=== PATIENT | male | born 1960 | race Caucasian/White ===

== ENCOUNTER 2023-03-28 19:19 | Observation (INO) | payer MEDICARE, SELFPAY ==
[2023-03-28] VITALS (7 sets, daily range): BP systolic 82–131; BP diastolic 54–77; PULSE 66–91; RESP 18–26; TEMP 36.3–36.4; O2SAT 97–100; BMI 21.8
--- NOTE | ~2023-03-28 | MR_ITS ---
EXAMINATION: MR foot LT wo con DATE: 03/30/2023 12:14 INDICATION: Abnormal x-ray of the left foot TECHNIQUE: Magnetic resonance imaging (MRI) of the left foot was performed without intravenous contra st. Sequences included axial, sagittal and coronal T1-weighted FSE, axial and coronal T2-weighted FS FSE and sagittal fluid sensitive FSE STIR. COMPARISON: Left foot radiographs dated 03/28/2023 FINDINGS: Status post great toe amputation at the level of the metatarsophalangeal joint and of the second toe at the mid diaphysis of the second proximal phalanx. There is dorsal and medial angulation of the mid and distal phalanges in the third toe relative to the axis of the proximal phalanx which accounts fo r the abnormal appearance on the prior radiographs. Fourth toe is clot. Normal bone marrow signal thr oughout. No reactive edema, fracture, osteomyelitis or other pathologic marrow replacing process. Marlon cific formation with loss of T1 fat signal the subcutaneous tissues plantar to the head of the first metatarsal and to lesser degree plantar to the head of the fifth metatarsal. Moderate fatty atrophy o f the intrinsic musculature of the left foot. Visualized portions of the flexor and extensor tendons are normal. Physiologic amount fluid in the joint spaces. No abscess or other abnormal fluid collecti ons. IMPRESSION: 1. No abscess or osteomyelitis in the left foot. 2. Malalignment of the third toe with dorsal/medial angulation of the middle and distal phalanges whi ch correspond to the abnormality described on the prior radiographs. Reviewed, dictated and finalized at location B. IMPRESSION: 1. No abscess or osteomyelitis in the left foot. 2. Malalignment of the third toe with dorsal/medial angulation of the middle an d distal phalanges which correspond to the abnormality described on the prior r adiographs.
--- NOTE | ~2023-03-28 | XR_ITS ---
EXAMINATION: XR foot LT min 3V DATE: 03/28/2023 20:56 INDICATION: Toe pain and bleeding. Prior amputation of the first and second toes TECHNIQUE: Dorsoplantar, two oblique and lateral views of the left foot were obtained. COMPARISON: None. FINDINGS: Amputation of the great toe at level of the first metatarsophalangeal joint. Amputation the second to e at the proximal diaphysis of the second proximal phalanx. Abnormally contoured but corticated bone in the region of the head of the third proximal phalanx, unclear whether this represents sequela of a n additional amputation or chronic erosion of the mid and distal phalanges and head of the proximal p halanx. No fractures. No acute appearing osteolysis/cortical erosion to suggest osteomyelitis. Mild p olyarticular osteoarthritis at the tarsometatarsal joints. Small plantar calcaneal spur. IMPRESSION: 1. No acute osseous abnormality. 2. Abnormally contoured but corticated bone in the region of the head of the third proximal phalanx, unclear whether this represents sequela of an additional amputation or chronic erosion of the mid and distal phalanges and head of the proximal phalanx. Reviewed, dictated and finalized at location A. IMPRESSION: 1. No acute osseous abnormality. 2. Abnormally contoured but corticated bone in the region of the head of the th ird proximal phalanx, unclear whether this represents sequela of an additional amputation or chronic erosion of the mid and distal phalanges and head of the p roximal phalanx.
--- NOTE | ~2023-03-28 | XR_ITS ---
EXAMINATION: XR chest 2V DATE: 03/28/2023 20:56 INDICATION: Cough TECHNIQUE: frontal and lateral views of the chest were obtained. COMPARISON: None FINDINGS: Bronchial wall thickening and mild opacities at the posterior lung bases on the lateral projection wh ich appears more likely right-sided on the frontal projection. Remainder of the lungs are clear. No p leural effusion or pneumothorax. Heart size is normal. Bilateral rib fractures which appear chronic o n the left and age indeterminate at the anterior right sixth and seventh ribs. IMPRESSION: 1. Mild wall thickening and mild opacities at the right lung base which could represent bronchitis/pn eumonia, mild pulmonary edema, atelectasis or some combination thereof. 2. Age-indeterminate anterior right sixth and seventh rib fractures. Correlate for point tenderness a t this location. Reviewed, dictated and finalized at location A. IMPRESSION: 1. Mild wall thickening and mild opacities at the right lung base which could r epresent bronchitis/pneumonia, mild pulmonary edema, atelectasis or some combin ation thereof. 2. Age-indeterminate anterior right sixth and seventh rib fractures. Correlate for point tenderness at this location.
--- NOTE | 2023-03-28 20:11 | ECG_ITS ---
Measurements Intervals [place] Rate: 84 P: -15 [place]: 195 QRS: 48 QRSD: 100 T: 65 QT: 431 QTc: 510 Interpretive Statements SINUS RHYTHM PROLONGED QT INTERVAL ABNORMAL ECG NO PREVIOUS ECG AVAILABLE FOR COMPARISON Electronically Signed On 03-29-2023 8:46:16 CDT by Anmol Petit D.O.
--- NOTE | 2023-03-28 20:26 | ED.SKABFB ---
HPI - Skin/Abscess/Foreign Bdy General Chief complaint: Skin/Abscess/Foreign Body Stated complaint: blisters over body Time Seen by Provider: 03/28/23 20:06 History of Present Illness HPI narrative: Patient is a 62-year-old male presenting with left foot pain. Patient states that he had 2 of his toes amputated from his left foot about 5 years ago. States that over the last several days he has had worsening pain and redness affecting that foot. States that the site of the prior amputation has started to bleed. States that the foot has become overwhelmingly painful so he came in for evaluation. States that he feels pain all over and also feels nauseated. He denies any chest pain though he says that he has had a productive cough. He denies worsening shortness of breath. No numbness or weakness. No abdominal pain. Denies further complaints. Related Data Home Medications Medication Instructions Recorded Confirmed albuterol sulfate 90 mcg/actuation 2 puff inhalation Q4H 03/28/23 03/28/23 aerosol inhaler amlodipine 5 mg tablet 5 mg PO DAILY 03/28/23 03/28/23 budesonide-formoterol HFA 160 2 puff inhalation BID 03/28/23 03/28/23 mcg-4.5 mcg/actuation aerosol inhaler (Symbicort) pramipexole 0.5 mg tablet 0.5 mg PO HS 03/28/23 03/28/23 tiotropium bromide 2.5 1 puff inhalation DAILY 03/28/23 03/28/23 mcg/actuation mist for inhalation (Spiriva Respimat) trazodone 50 mg tablet 50 mg PO HS 03/28/23 03/28/23 Allergies Allergy/AdvReac Type Severity Reaction Status Date / Time sulfamethoxazole Allergy Severe Swelling Verified 03/28/23 23:42 of Lip/Tongue/Throat trimethoprim Allergy Severe Swelling Verified 03/28/23 23:42 of Lip/Tongue/Throat Review of Systems Review of Systems: All systems reviewed & are unremarkable except as noted in HPI and below PMFSH Past Medical History Medical History (Updated 03/30/23 @ 18:24 by Anne Gomez MD) COPD (chronic obstructive pulmonary disease) Essential hypertension Gangrene due to arterial insufficiency Right lower extremity Hepatitis C virus infection cured after antiviral drug therapy Restless legs syndrome (RLS) Tobacco dependence with current use Surgical History Surgical History (Updated 03/29/23 @ 01:01 by Danielle Connolly DO) Amputation of left great toe History of right below knee amputation Status post cataract extraction of both eyes with insertion of intraocular lens Family History Family History (Updated 03/28/23 @ 22:38 by Danielle Connolly DO) Mother Age older than 80 years Father Unknown family medical history Social History Social History (Updated 03/29/23 @ 01:00 by Danielle Connolly DO) Social History: The patient lives in a town home. He is and lives alone. He does not have any children. 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 He still smokes a pack of cigars a day. He drinks at least 3-4 alcoholic beverages a day. He does have a distant history of IV drug abuse back in the 1980s and was treated for hepatitis C as a result. He denies any recent IV drug use. Code status: Full code Surrogate decision maker: Vanessa Nieto (aunt) phone number [phone] Smoking packs per day: 1 Smoking cigarettes per day: 20.0 Years smoked: 50 Smoking pack-years: 50.00 Smoking status: Current every day smoker Tobacco type: cigars Second hand tobacco smoke exposure: Yes Alcohol intake: current Drinks per week: 28 Substance use: former Substance use type: IV drugs Last use: 1979 Lack of Transportation: No Lack of Food: Never True Current Housing: I Have Housing Concerned About Future Housing: No Difficulty Paying Gas/Electric Bills: No Difficulty Paying for Meds: No Currently Unemployed: No Education: High School Diploma/GED Difficulty w/ Childcare or Family Care: No Living arrangements: alone Occupation/Education:
[2023-03-28] MEDS: SODIUM CHLORIDE 0.9% IV 1,000 ML 999 ML IV CONT ×2 (20:33)
[2023-03-28 20:46] LABS: Basophils Absolute Auto 0.1 K/mm3 (0.0-0.1); Eosinophils Absolute Auto 0.2 K/mm3 (0-0.3); Eosinophils Percent Auto 3.8 % (0-4.4); Hematocrit 31.6 % (42.0-52.0); Immature Granulocyte Absolute 0.02 K/mm3 (0.00-0.031); Immature Granulocyte Percent A 0.3 % (0-0.5); Lymphocytes Absolute Auto 1.79 K/mm3 (0.9-3.2); Lymphocytes Percent Auto 30.7 % (18.3-44.2); Mean Corpuscular HGB Conc 31.6 g/dl (32-36); Mean Corpuscular Hemoglobin 27.7 pg (26-34); Mean Corpuscular Volume 87.5 fl (80-100); Mean Platelet Volume 8.8 fl (7.4-10.4); Monocytes Absolute Auto 0.6 K/mm3 (0.1-0.6); Monocytes Percent Auto 10.3 % (2.6-8.5); Neutrophils Absolute Auto 3.1 K/mm3 (1.3-6.7); Neutrophils Percent Auto 53.9 % (45.5-73.1); Platelet Count Result 229 k/mm3 (150-375); Red Blood Count 3.61 M/mm3 (4.6-6.20); Red Cell Distribution Width 18.4 % (11.5-14.5); White Blood Count 5.8 K/mm3 (4.5-10.0)
[2023-03-28] MEDS: HYDROmorphone HCL INJ (*CRX) 1 MG/ML SYR 0.5 MG IV PUSH (20:46)
[2023-03-28] MEDS: ONDANSETRON INJ 4 MG/2 ML VIAL IV PUSH (20:47)
[2023-03-28 20:57] LABS: Ethanol 104 mg/dL (<10)
[2023-03-28 20:57] LABS: Alanine Aminotransferase 18 U/L (6-50); Albumin Level 3.9 g/dL (3.5-5.1); Alkaline Phosphatase 62 U/L (38-126); Anion Gap 10 mmol/L (8-16); Aspartate Amino Transferase 41 U/L (17-59); Bilirubin,Total 0.6 mg/dL (0.2-1.3); Blood Urea Nitrogen 18 mg/dL (9-20); Calcium 8.4 mg/dL (8.4-10.2); Carbon Dioxide 22 mmol/L (22-30); Chloride 101 mmol/L (98-107); Estimated Glomerular Filt Rate > 60; Glucose 73 mg/dL (65-110); Lipase 277 U/L (23-300); Potassium 3.3 mmol/L (3.4-5.0); Sodium 133 mmol/L (137-145)
[2023-03-28 20:58] LABS: Lactic Acid Reflex 2.4 mmol/L (0.7-2.0)
--- NOTE | 2023-03-28 21:25 | PC.NURSE ---
pt comes to ED today for blisters allover body and swelling. no blisters or swelling noted. pt has redness and swelling with sores to his left foot.
[2023-03-28 21:35] LABS: Influenza A QL RT-PCR Negative (Negative); Influenza B QL RT-PCR Negative (Negative); SARS-CoV-2 RNA PCR Negative (Negative)
[2023-03-28 21:47] LABS: Phosphorus 3.4 mg/dL (2.5-4.5)
[2023-03-28] MEDS: CEFEPIME 1 GM/NS 50 ML 1 GM/50 ML BAG IVPB (21:57)
[2023-03-28] MEDS: DOXYCYCLINE 100 MG/NS 100 ML 100 MG/100 ML BAG IVPB (22:29)
--- NOTE | 2023-03-28 22:32 | PM.IMHP ---
H&P: HPI History of Present Illness Date/Time: 03/28/23 22:00 Chief Complaint: ?Blisters all over my body? Narrative: 62-year-old male with a past medical history of right vmsft-psn-gwwo amputation, left 1st and 2nd toe amputation, COPD, essential hypertension and restless leg syndrome who came into the ER via EMS with a complaint of blisters all over his body. The patient at the time of my evaluation stated that he came into the ER because he has ?eggs coming out of his pores. The patient indicates that when he squeezes his arms his hairs on his arms stand up and he has aches that come out from his porch. He also tells me that he has been coughing and when he coughs he has eggs from a fungus he was exposed while junking coming up from his lungs. He also states that his nasal drainage has eggs. He told EMS that he needed to come in because he had blisters all over his body. However there was no blisters noted on exam by EMS or by medical records coder at the hospital. The patient has been afebrile. He is not in any respiratory distress. He initially was refusing to let staff take his shoes off because he stated he would never get his foot back in issue. They did manage to take issue often he had a laceration/skin tear to the ball of his left foot. Initially the skin appeared macerated in appearance but after his foot had been exposed to the air there was no evidence of maceration or rash. Patient did have some mild erythema around the laceration. He had no associated warmth or drainage. The patient was mildly intoxicated in the ER. He states he drinks 3-4 alcoholic beverages a day. He denies pain and alcoholic or having episodes of alcohol withdrawal. He does have chronic shortness of breath due to his history of COPD. He still continues to smoke. He denies any nausea or vomiting. He reports that he is extremely hungry. He denies any chest pain. When I discussed the patient's symptoms in tell him that he does not have eggs coming from his sputum and that his mucus which he describes as clear in nature is just from his COPD and smoking and possible pneumonia the patient is dismissive. He is redirectable. He denies any significant pain in his foot or leg. He reports history of restless leg syndrome is requesting his home Mirapex and trazodone. The patient denies a known history of BPH but does have some instances of weak stream and interrupted urinary stream. He denies any dysuria. Review of Systems Review of Systems: 12 systems were reviewed with pertinent positives and negatives per HPI. Except as documented in the HPI, all other systems were reviewed and are negative. [facility] Past Medical History Medical History (Updated 03/29/23 @ 01:14 by Danielle Connolly DO) COPD (chronic obstructive pulmonary disease) Essential hypertension Gangrene due to arterial insufficiency Right lower extremity Hepatitis C virus infection cured after antiviral drug therapy Restless legs syndrome (RLS) Tobacco dependence with current use Surgical History Surgical History (Updated 03/29/23 @ 01:01 by Danielle Connolly DO) Amputation of left great toe History of right below knee amputation Status post cataract extraction of both eyes with insertion of intraocular lens Family History Family History (Updated 03/28/23 @ 22:38 by Danielle Connolly DO) Mother Age older than 80 years Father Unknown family medical history Social History Social History (Updated 03/29/23 @ 01:00 by Danielle Connolly DO) Social History: The patient lives in a town home. He is and lives alone. He does not have any children. 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 He still smokes a pack of cigars a day. He drinks at least 3-4 alcoholic beverages a day. He does have a distant history of IV drug abuse back in the 1980s and was treated for hepatitis C as a result. He denies any recent IV drug use. Code s
[2023-03-28] MEDS: traZODone HCL 50 MG TABLET PO (22:43)
[2023-03-28] MEDS: PRAMIPEXOLE 0.5 MG TABLET PO (22:43)
--- NOTE | 2023-03-28 23:20 | PC.NURSE ---
Pt attempting to provide urine sample at this time. Pt declines catheter
--- NOTE | 2023-03-28 23:30 | PC.NURSE ---
Patient has two pocket knives in possession. Pt compliant with locking these items up.
[2023-03-28 23:37] LABS: Appearance Urine Clear (Clear); Bilirubin Urine 1+ (Negative); Blood Urine Negative (Negative); Color Urine Dark Yellow (Yellow); Glucose Urine UA Negative (Negative); Ketones Urine Negative (Negative); Leukocyte Esterase Ur Negative LEU/UL (Negative); Nitrate Urine Negative (Negative); Protein Urine Negative (Negative); pH Urine 5.5 (5.0-9.0)
[2023-03-28 23:44] LABS: Reflex Lactic Acid Yes or No Add Lactic
[2023-03-28 23:49] LABS: Add Urine Microscopic? NO
[2023-03-29] VITALS (11 sets, daily range): BP systolic 119–137; BP diastolic 83–98; PULSE 65–116; RESP 16–24; TEMP 36–36.4; O2SAT 94–98
--- NOTE | 2023-03-29 00:10 | ADMGEN ---
This patient, Néstor Lund, was admitted to 3 [facility] Surg Room 320-01. Patient/family oriented to hospital policies and general routines including ID bracelet, bed and alarms, visiting hours, pain management, procedures, bathroom and other care routines, personal items, smoking policy, room service/diet, and visiting hours. Information on how to activate the Rapid Response Team has been discussed. Patient/Family are encouraged to report perceived risks to care and to ask questions if they do not understand what they are told or what they should do.
[2023-03-29] MEDS: SODIUM CHLORIDE 0.9% IV 1,000 ML 100 ML IV CONT ×2 (01:35→18:01)
[2023-03-29] MEDS: POTASSIUM CHLORIDE 20 MEQ ER TABLET 40 MEQ PO (01:35)
[2023-03-29] MEDS: THIAMINE HCL 200 MG/2 ML VIAL 100 MG IV PUSH ×2 (01:36→12:54)
[2023-03-29 06:07] LABS: Basophils Percent Auto 0.9 % (0.2-1.2); Eosinophils Absolute Auto 0.2 K/mm3 (0-0.3); Eosinophils Percent Auto 5.2 % (0-4.4); Hematocrit 31.6 % (42.0-52.0); Hemoglobin 9.7 g/dL (14.0-18.0); Immature Granulocyte Absolute 0.01 K/mm3 (0.00-0.031); Immature Granulocyte Percent A 0.2 % (0-0.5); Lymphocytes Absolute Auto 1.48 K/mm3 (0.9-3.2); Mean Corpuscular HGB Conc 30.7 g/dl (32-36); Mean Corpuscular Hemoglobin 27.5 pg (26-34); Mean Corpuscular Volume 89.5 fl (80-100); Mean Platelet Volume 8.9 fl (7.4-10.4); Monocytes Absolute Auto 0.6 K/mm3 (0.1-0.6); Monocytes Percent Auto 14.2 % (2.6-8.5); Neutrophils Absolute Auto 1.9 K/mm3 (1.3-6.7); Neutrophils Percent Auto 44.5 % (45.5-73.1); Platelet Count Result 206 k/mm3 (150-375); Red Blood Count 3.53 M/mm3 (4.6-6.20); Red Cell Distribution Width 18.4 % (11.5-14.5); White Blood Count 4.2 K/mm3 (4.5-10.0)
[2023-03-29 06:18] LABS: Anion Gap 6 mmol/L (8-16); Blood Urea Nitrogen 17 mg/dL (9-20); Calcium 7.8 mg/dL (8.4-10.2); Carbon Dioxide 23 mmol/L (22-30); Chloride 105 mmol/L (98-107); Estimated CRCL calculation 97 ml/min; Estimated Glomerular Filt Rate > 60; Glucose 93 mg/dL (65-110); Potassium 3.8 mmol/L (3.4-5.0); Sodium 134 mmol/L (137-145)
[2023-03-29 06:21] LABS: Lactic Acid 0.8 mmol/L (0.7-2.0)
[2023-03-29] MEDS: CEFEPIME 2 GM/NS 50 ML 2 GM/50 ML BAG IVPB ×3 (06:24→22:31)
[2023-03-29 07:23] LABS: Folic Acid 6.8 ng/mL (2.76->20)
[2023-03-29] MEDS: FLUTICASONE/SALMETEROL 115-21 MCG INHALER 1 PUFF 2 PUFF INHALATION ×2 (08:00→20:43)
[2023-03-29] MEDS: MULTIVITAMINS THERAPEUTIC TAB (*BKC) 1 TABLET PO (08:21)
[2023-03-29] MEDS: amLODIPine BESYLATE 5 MG TABLET PO (08:21)
[2023-03-29] MEDS: DOXYCYCLINE 100 MG/NS 100 ML 100 MG/100 ML BAG IVPB ×2 (08:22→20:57)
[2023-03-29] MEDS: UMECLIDINIUM BROMIDE 62.5 MCG ELLIPTA 1 PUFF INHALATION (09:00)
--- NOTE | 2023-03-29 09:27 | PM.IMPN ---
Progress Note: A&P Assessment and Plan (1) PNA (pneumonia): Qualifiers: Laterality: right Lung location: lower lobe of lung Pneumonia type: due to unspecified organism Qualified Code(s): J18.9 - Pneumonia, unspecified organism Code(s): J18.9 - Pneumonia, unspecified organism Status: Acute (2) Wound of left foot: Code(s): S91.302A - Unspecified open wound, left foot, initial encounter Status: Acute (3) Hypotension due to hypovolemia: Code(s): I95.89 - Other hypotension; E86.1 - Hypovolemia Status: Acute (4) Tobacco dependence with current use: Code(s): F17.200 - Nicotine dependence, unspecified, uncomplicated Status: Acute (5) QT prolongation: Code(s): R94.31 - Abnormal electrocardiogram [ECG] [EKG] Status: Acute (6) Hypokalemia: Code(s): E87.6 - Hypokalemia Status: Acute (7) Anemia: Qualifiers: Anemia type: unspecified type Qualified Code(s): D64.9 - Anemia, unspecified Code(s): D64.9 - Anemia, unspecified Status: Acute (8) Weak urine stream: Code(s): R39.12 - Poor urinary stream Status: Acute (9) Alcohol intoxication: Qualifiers: Complication of substance-induced condition: uncomplicated Qualified Code(s): F10.920 - Alcohol use, unspecified with intoxication, uncomplicated Code(s): F10.929 - Alcohol use, unspecified with intoxication, unspecified Status: Acute (10) Delusions: Code(s): F22 - Delusional disorders Status: Acute Plan Pneumonia right lung base reported cough with productive sputum. Vanc cefepime in the ER switched to doxycycline and cefepime follow cultures no leukocytosis COPD continue home inhaler Foot ulcers: Does not look overly infected. On antibiotics for pneumonia should cover for this to. Wound care Hypotension on arrival to the ER improved IV resuscitation. hypokalemia; repalace chronci alcohol abuse [facility] protocol. librium bph tobacco abuse delusion/hallucination: Referring scan fraction. May have underlying psychiatric illness. no prior psychiatric diagnosis noted. Could be from alcohol withdrawal. Will continue to monitor with CIWA protocol Hypertension on amlodipine DVT prophylaxis Lovenox Subjective Date/time seen: 03/29/23 09:27 Interval history: 62-year-old male with a past medical history of right [id number] amputation, left 1st and 2nd toe amputation, COPD, essential hypertension and restless leg syndrome who came into the ER via EMS with a complaint of blisters all over his body.? The patient at the time of my evaluation stated that he came into the ER because he has ?eggs coming out of his pores.? The patient indicates that when he squeezes his arms his hairs on his arms stand up and he has aches that come out from his porch.? 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 He also states that his nasal drainage has eggs.? He told EMS that he needed to come in because he had blisters all over his body.? However there was no blisters noted on exam by EMS or by medical practice administrator at the hospital.? The patient has been afebrile.? He is not in any respiratory distress.? He initially was refusing to let staff take his shoes off because he stated he would never get his foot back in issue.? They did manage to take issue often he had a laceration/skin tear to the ball of his left foot.? Initially the skin appeared macerated in appearance but after his foot had been exposed to the air there was no evidence of maceration or rash.? Patient did have some mild erythema around the laceration.? He had no associated warmth or drainage.? The patient was mildly intoxicated in the ER.? He states he drinks 3-4 alcoholic beverages a day.? He denies pain and alcoholic or having episodes of alcohol withdrawal.? He does have chronic shortness of
[2023-03-29 11:33] LABS: Glucose Point of Care 124 mg/dl (65-105)
[2023-03-29] MEDS: CYANOCOBALAMIN INJ 1,000 MCG/ML VIAL 1000 MCG IM (12:54)
[2023-03-29 18:29] LABS: Glucose Point of Care 120 mg/dl (65-105)
[2023-03-29] MEDS: PRAMIPEXOLE 0.5 MG TABLET PO (20:57)
[2023-03-29] MEDS: traZODone HCL 50 MG TABLET PO (20:57)
[2023-03-30] VITALS (8 sets, daily range): BP systolic 123–149; BP diastolic 79–87; PULSE 50–75; RESP 14–19; TEMP 36.1–37.2; O2SAT 95–100
[2023-03-30] LABS: Glucose Point of Care 134 mg/dl (65-105)
[2023-03-30] MEDS: SODIUM CHLORIDE 0.9% IV 1,000 ML 100 ML IV CONT ×2 (05:02→18:28)
[2023-03-30] MEDS: CEFEPIME 2 GM/NS 50 ML 2 GM/50 ML BAG IVPB ×3 (05:03→21:43)
[2023-03-30 06:09] LABS: Eosinophils Absolute Auto 0.2 K/mm3 (0-0.3); Eosinophils Percent Auto 5.4 % (0-4.4); Hematocrit 30.2 % (42.0-52.0); Hemoglobin 9.5 g/dL (14.0-18.0); Immature Granulocyte Absolute 0.01 K/mm3 (0.00-0.031); Immature Granulocyte Percent A 0.3 % (0-0.5); Lymphocytes Absolute Auto 1.12 K/mm3 (0.9-3.2); Lymphocytes Percent Auto 28.9 % (18.3-44.2); Mean Corpuscular HGB Conc 31.5 g/dl (32-36); Mean Corpuscular Volume 89.1 fl (80-100); Mean Platelet Volume 8.7 fl (7.4-10.4); Monocytes Absolute Auto 0.5 K/mm3 (0.1-0.6); Monocytes Percent Auto 12.1 % (2.6-8.5); Neutrophils Percent Auto 52.3 % (45.5-73.1); Platelet Count Result 204 k/mm3 (150-375); Red Blood Count 3.39 M/mm3 (4.6-6.20); Red Cell Distribution Width 18.3 % (11.5-14.5); White Blood Count 3.9 K/mm3 (4.5-10.0)
[2023-03-30 06:22] LABS: Alanine Aminotransferase 15 U/L (6-50); Alkaline Phosphatase 74 U/L (38-126); Anion Gap 4 mmol/L (8-16); Aspartate Amino Transferase 29 U/L (17-59); Bilirubin,Total 0.5 mg/dL (0.2-1.3); Blood Urea Nitrogen 11 mg/dL (9-20); Calcium 7.8 mg/dL (8.4-10.2); Carbon Dioxide 22 mmol/L (22-30); Chloride 108 mmol/L (98-107); Estimated CRCL calculation 97 ml/min; Estimated Glomerular Filt Rate > 60; Glucose 89 mg/dL (65-110); Magnesium 1.6 mg/dL (1.6-2.3); Sodium 134 mmol/L (137-145)
[2023-03-30] MEDS: MAGNESIUM SULF 2 GM/WATER 50ML 2 GM/50 ML BAG IVPB (08:24)
[2023-03-30] MEDS: MULTIVITAMINS THERAPEUTIC TAB (*BKC) 1 TABLET PO (08:25)
[2023-03-30] MEDS: amLODIPine BESYLATE 5 MG TABLET PO (08:25)
[2023-03-30] MEDS: UMECLIDINIUM BROMIDE 62.5 MCG ELLIPTA 1 PUFF INHALATION (08:41)
[2023-03-30] MEDS: FLUTICASONE/SALMETEROL 115-21 MCG INHALER 1 PUFF 2 PUFF INHALATION ×2 (09:00→21:06)
[2023-03-30] MEDS: THIAMINE HCL 200 MG/2 ML VIAL 100 MG IV PUSH (09:33)
[2023-03-30] MEDS: DOXYCYCLINE 100 MG/NS 100 ML 100 MG/100 ML BAG IVPB ×2 (09:33→20:38)
[2023-03-30 11:36] LABS: Glucose Point of Care 97 mg/dl (65-105)
[2023-03-30 11:36] LABS: Glucose Point of Care 155 mg/dl (65-105)
--- NOTE | 2023-03-30 11:58 | PM.IMPN ---
Progress Note: A&P Assessment and Plan (1) PNA (pneumonia): Qualifiers: Pneumonia type: due to unspecified organism Laterality: right Lung location: lower lobe of lung Qualified Code(s): J18.9 - Pneumonia, unspecified organism Code(s): J18.9 - Pneumonia, unspecified organism Status: Acute (2) Wound of left foot: Code(s): S91.302A - Unspecified open wound, left foot, initial encounter Status: Acute (3) Hypotension due to hypovolemia: Code(s): I95.89 - Other hypotension; E86.1 - Hypovolemia Status: Acute (4) Tobacco dependence with current use: Code(s): F17.200 - Nicotine dependence, unspecified, uncomplicated Status: Acute (5) QT prolongation: Code(s): R94.31 - Abnormal electrocardiogram [ECG] [EKG] Status: Acute (6) Hypokalemia: Code(s): E87.6 - Hypokalemia Status: Acute (7) Anemia: Qualifiers: Anemia type: unspecified type Qualified Code(s): D64.9 - Anemia, unspecified Code(s): D64.9 - Anemia, unspecified Status: Acute (8) Weak urine stream: Code(s): R39.12 - Poor urinary stream Status: Acute (9) Alcohol intoxication: Qualifiers: Complication of substance-induced condition: uncomplicated Qualified Code(s): F10.920 - Alcohol use, unspecified with intoxication, uncomplicated Code(s): F10.929 - Alcohol use, unspecified with intoxication, unspecified Status: Acute (10) Delusions: Code(s): F22 - Delusional disorders Status: Acute Plan Pneumonia right lung base reported cough with productive sputum. Vanc cefepime in the ER switched to doxycycline and cefepime follow cultures no leukocytosis COPD continue home inhaler Foot ulcers: Does not look overly infected. On antibiotics for pneumonia should cover for this to. Wound care x-ray foot:Abnormally contoured but corticated bone in the region of the head of the third proximal phalanx, unclear whether this represents sequela of an additional amputation or chronic erosion of the mid and distal phalanges and head of the proximal phalanx Will get MRI foot to further evaluate this rule out underlying osteomyelitis Hypotension on arrival to the ER improved IV resuscitation. hypokalemia; repalace chronci alcohol abuse ciwa protocol. librium bph tobacco abuse delusion/hallucination: Referring scan fraction. May have underlying psychiatric illness. no prior psychiatric diagnosis noted. Could be from alcohol withdrawal. Will continue to monitor with CIWA protocol Hypertension on amlodipine DVT prophylaxis Lovenox Subjective Date/time seen: 03/30/23 11:58 Interval history: 62-year-old male with a past medical history of right zthke-qhf-[id number] amputation, left 1st and 2nd toe amputation, COPD, essential hypertension and restless leg syndrome who came into the ER via EMS with a complaint of blisters all over his body.? The patient at the time of my evaluation stated that he came into the ER because he has ?eggs coming out of his pores.? The patient indicates that when he squeezes his arms his hairs on his arms stand up and he has aches that come out from his porch.? 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 He also states that his nasal drainage has eggs.? He told EMS that he needed to come in because he had blisters all over his body.? However there was no blisters noted on exam by EMS or by medical superintendent at the hospital.? The patient has been afebrile.? He is not in any respiratory distress.? He initially was refusing to let staff take his shoes off because he stated he would never get his foot back in issue.? They did manage to take issue often he had a laceration/skin tear to the ball of his left foot.? Initially the skin appeared macerated in appearance but after his foot had been exposed to the air there was no
[2023-03-30] MEDS: SALINE LOCK FLUSH 10 ML IV PUSH (13:01)
[2023-03-30] MEDS: PRAMIPEXOLE 0.5 MG TABLET PO (20:39)
[2023-03-30] MEDS: traZODone HCL 50 MG TABLET PO (21:44)
[2023-03-31 04:00] VITALS: BP 151/91; PULSE 74; RESP 14; TEMP 36.2; O2SAT 100
[2023-03-31] MEDS: CEFEPIME 2 GM/NS 50 ML 2 GM/50 ML BAG IVPB (05:54)
[2023-03-31] MEDS: SODIUM CHLORIDE 0.9% IV 1,000 ML 100 ML IV CONT (05:55)
[2023-03-31] MEDS: SALINE LOCK FLUSH 20 ML IV PUSH (05:55)
[2023-03-31] MEDS: SALINE LOCK FLUSH 10 ML IV PUSH ×2 (05:55→14:05)
[2023-03-31 06:11] LABS: Basophils Absolute Auto 0.1 K/mm3 (0.0-0.1); Basophils Percent Auto 1.4 % (0.2-1.2); Eosinophils Absolute Auto 0.2 K/mm3 (0-0.3); Eosinophils Percent Auto 6.6 % (0-4.4); Hematocrit 32.1 % (42.0-52.0); Hemoglobin 9.6 g/dL (14.0-18.0); Lymphocytes Absolute Auto 1.26 K/mm3 (0.9-3.2); Lymphocytes Percent Auto 34.6 % (18.3-44.2); Mean Corpuscular HGB Conc 29.9 g/dl (32-36); Mean Corpuscular Hemoglobin 27.4 pg (26-34); Mean Corpuscular Volume 91.5 fl (80-100); Mean Platelet Volume 9.4 fl (7.4-10.4); Monocytes Absolute Auto 0.5 K/mm3 (0.1-0.6); Monocytes Percent Auto 14.3 % (2.6-8.5); Neutrophils Absolute Auto 1.6 K/mm3 (1.3-6.7); Neutrophils Percent Auto 43.1 % (45.5-73.1); Platelet Count Result 206 k/mm3 (150-375); Red Blood Count 3.51 M/mm3 (4.6-6.20); Red Cell Distribution Width 18.5 % (11.5-14.5); White Blood Count 3.6 K/mm3 (4.5-10.0)
[2023-03-31 06:21] LABS: Alanine Aminotransferase 14 U/L (6-50); Alkaline Phosphatase 60 U/L (38-126); Anion Gap 4 mmol/L (8-16); Aspartate Amino Transferase 26 U/L (17-59); Bilirubin,Total 0.4 mg/dL (0.2-1.3); Blood Urea Nitrogen 7 mg/dL (9-20); Calcium 7.9 mg/dL (8.4-10.2); Carbon Dioxide 23 mmol/L (22-30); Chloride 107 mmol/L (98-107); Estimated CRCL calculation 97 ml/min; Estimated Glomerular Filt Rate > 60; Glucose 90 mg/dL (65-110); Magnesium 1.8 mg/dL (1.6-2.3); Potassium 3.8 mmol/L (3.4-5.0); Sodium 134 mmol/L (137-145)
[2023-03-31 08:00] VITALS: BP 128/71; PULSE 93; RESP 20; TEMP 36.9; O2SAT 98
[2023-03-31 08:22] VITALS: PULSE 76; RESP 18
[2023-03-31] MEDS: FLUTICASONE/SALMETEROL 115-21 MCG INHALER 1 PUFF 2 PUFF INHALATION (08:22)
[2023-03-31] MEDS: UMECLIDINIUM BROMIDE 62.5 MCG ELLIPTA 1 PUFF INHALATION (08:22)
[2023-03-31] MEDS: amLODIPine BESYLATE 5 MG TABLET PO (08:27)
[2023-03-31] MEDS: MULTIVITAMINS THERAPEUTIC TAB (*BKC) 1 TABLET PO (08:27)
[2023-03-31] MEDS: THIAMINE HCL 200 MG/2 ML VIAL 100 MG IV PUSH (08:28)
[2023-03-31] MEDS: DOXYCYCLINE 100 MG/NS 100 ML 100 MG/100 ML BAG IVPB (08:43)
[2023-03-31 12:00] VITALS: BP 120/81; PULSE 80; RESP 18; TEMP 36.4; O2SAT 98
--- NOTE | 2023-03-31 13:13 | PM.DS ---
DS: Admitting Diagnosis Discharge Date 03/31/2023 Admitting Diagnosis Left foot pain DS: Discharge Diagnosis Discharge Diagnosis (1) PNA (pneumonia): Code(s): J18.9 - Pneumonia, unspecified organism Status: Acute (2) Wound of left foot: Code(s): S91.302A - Unspecified open wound, left foot, initial encounter Status: Acute (3) Hypotension due to hypovolemia: Code(s): I95.89 - Other hypotension; E86.1 - Hypovolemia Status: Acute (4) Tobacco dependence with current use: Code(s): F17.200 - Nicotine dependence, unspecified, uncomplicated Status: Acute (5) QT prolongation: Code(s): R94.31 - Abnormal electrocardiogram [ECG] [EKG] Status: Acute (6) Hypokalemia: Code(s): E87.6 - Hypokalemia Status: Acute (7) Anemia: Qualifiers: Anemia type: unspecified type Qualified Code(s): D64.9 - Anemia, unspecified Code(s): D64.9 - Anemia, unspecified Status: Acute (8) Weak urine stream: Code(s): R39.12 - Poor urinary stream Status: Acute (9) Alcohol intoxication: Code(s): F10.929 - Alcohol use, unspecified with intoxication, unspecified Status: Acute (10) Delusions: Code(s): F22 - Delusional disorders Status: Acute DS: Summary Hospital Course Hospital Course: Pneumonia right lung base reported cough with productive sputum.? Vanc cefepime in the ER switched to doxycycline and cefepime follow cultures no leukocytosis. Will switch to doxycycline and Augmentin to cover pneumonia. Clinically improving. COPD continue home inhaler Foot ulcers:? Does not look overly infected.? On antibiotics for pneumonia should cover for this to. ? Wound care x-ray foot:Abnormally contoured but corticated bone in the region of the head of the third proximal phalanx, unclear whether this represents sequela of an additional amputation or chronic erosion of the mid and distal phalanges and head of the proximal phalanx MRI foot ruled out osteomyelitis. Will switch to Augmentin and doxycycline to cover for soft tissue infection with foot ulceration. Continue wound care Hypotension on arrival to the ER improved IV resuscitation. hypokalemia; repalace chronci alcohol abuse ciwa protocol. librium bph tobacco abuse delusion/hallucination: Referring scan fraction.? May have underlying psychiatric illness. ? no prior psychiatric diagnosis noted.? Could be from alcohol withdrawal.? Will continue to monitor with CIWA protocol. Alcohol level was also high on admission which could be another reason as well. This has resolved by the time of discharge. Hypertension on amlodipine DVT prophylaxis Lovenox Time Spent with Patient Time attestation: Total time spent providing and/or coordinating discharge services: 35 minutes Exam Narrative: GENERAL: Well appearing, cooperative HEAD: Normocephalic, atraumatic. EYES: PERRLA and EOMI. ENT: Nares clear, no rhinorrhea or epistaxis.? Mucous membranes dry NECK: Supple. nontender CHEST: Coarse breath sounds in the bases, no respiratory distress HEART: Regular rate and rhythm.? No murmur heard.? Normal peripheral pulses. ABDOMEN: Soft, nontender, nondistended, normal active bowel sounds. 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 Alert and oriented x3. PSYCH: Normal mood and affect. DS: Data Data Completed and Pending Labs on day of discharge: Labs from last 24 hours 03/31/23 06:03 WBC 3.6 L RBC 3.51 L Hgb 9.6 L Hct 32.1 L MCV 91.5 MCH 27.4 MCHC 29.9 L RDW 18.5 H Plt Count 206 MPV 9.4 Immature Gran % (Auto) 0.0 Neut % (Auto) 43.1 L
[2023-03-31] MEDS: AMOXICILLIN/CLAVULANATE K 875-125 MG TAB 1 TABLET PO (14:05)
== END 2023-03-31 15:35 | disposition home or self-care (01) ==
LOC: ANHED 20:45 → ANH3MEDSUR 03-29 00:20
PROVIDERS: Admitting Provider Internal Medicine; Emergency Provider Emergency Medicine; PCP Internal Medicine Infectious Disease; Visit Provider Internal Medicine
DX: J18.9 Pneumonia, unspecified organism (principal); S91.312A Laceration without foreign body, left foot, initial encounter; I95.89 Other hypotension; E86.1 Hypovolemia; E87.6 Hypokalemia; E87.20 Acidosis, unspecified; R05.9 Cough, unspecified; Z20.822 Contact with and (suspected) exposure to COVID-19; D64.9 Anemia, unspecified; J44.9 Chronic obstructive pulmonary disease, unspecified; I10 Essential (primary) hypertension; R39.12 Poor urinary stream; R94.31 Abnormal electrocardiogram [ECG] [EKG]; G25.81 Restless legs syndrome; R91.8 Other nonspecific abnormal finding of lung field; F10.929 Alcohol use, unspecified with intoxication, unspecified; Y90.5 Blood alcohol level of 100-119 mg/100 ml; F22 Delusional disorders; F17.290 Nicotine dependence, other tobacco product, uncomplicated; Z89.511 Acquired absence of right leg below knee; Z89.422 Acquired absence of other left toe(s); Z89.412 Acquired absence of left great toe; Z79.51 Long term (current) use of inhaled steroids; Z79.899 Other long term (current) drug therapy
CPT/HCPCS: 36415; 36569; 71046; 73630; 73718; 80048; 80053; 80307; 81003; 82607; 82746; 82948; 83605; 83690; 83735; 84100; 85025; 87040; 87636; 93005; 94640; 96361; 96365; 96366; 96367; 96372; 96375; 96376; 99285; A9270; C1751; G0378; J0692; J1170; J2405; J3411; J3420; J3475; J7030

== ENCOUNTER 2024-07-07 10:03 | Outpatient (CLI) | payer MEDICARE, SELFPAY ==
--- NOTE | ~2024-07-07 | PE_ITS ---
EXAMINATION: PET skull to mid thigh DATE: 07/07/2024 12:33 INDICATION: Mass of right lower lobe of lung. TECHNIQUE: Blood glucose level was 64 mg/dL. 9.723 mCi of 18-fluorodeoxyglucose (18-FDG) was administ ered i.v. Low dose computed tomography (CT) images were acquired from the base of the brain to the pr oximal thighs for attenuation correction and anatomic localization. Automated exposure control was em ployed. Dose-length product (DLP) was 591 mGy-cm. Positron emission tomography (PET) images were acqu ired in the same distribution. COMPARISON: Chest 2 views 03/28/2023 FINDINGS: Head/neck: There are no pathologically enlarged lymph nodes. Chest: There is mild emphysema. There are patchy airspace opacities in right lower lobe and right mid dle lobe with increased activity, consistent with pneumonia. A calcified left lung nodule and calcifi ed left hilar lymph nodes are consistent with old granulomatous disease. No pleural effusion. The hea rt size is normal. There are coronary artery calcifications. No pericardial effusion. Abdomen/pelvis/proximal thighs: The liver is normal. Calcifications in the spleen are consistent with old granulomatous disease. There is a gallstone in the gallbladder, which is contracted. The pancrea s, adrenal glands, and kidneys are normal. The bladder is distended. The prostate is mildly enlarged. There is diverticulosis of the colon without evidence of diverticulitis. There are no pathologically enlarged lymph nodes. There is no free intraperitoneal fluid. There is no osseous malignancy. IMPRESSION: 1. Patchy airspace opacities in right lower lobe and right middle lobe with increased activity, consi stent with pneumonia. Reviewed, dictated and finalized at location A. IMPRESSION: 1. Patchy airspace opacities in right lower lobe and right middle lobe with inc reased activity, consistent with pneumonia.
[2024-07-07 11:06] LABS: Glucose Point of Care 64 mg/dl (65-105)
== END 2024-07-07 10:04 | disposition home or self-care (01) ==
LOC: ANHIMG 10:03
PROVIDERS: PCP Internal Medicine Infectious Disease; Visit Provider Internal Medicine Infectious Disease
DX: R91.8 Other nonspecific abnormal finding of lung field (principal)
CPT/HCPCS: 78815; A9552

== ENCOUNTER 2024-11-08 10:28 | Outpatient (CLI) | payer MEDICARE, MEDICAID, SELFPAY ==
--- NOTE | ~2024-11-08 | CT_ITS ---
CT Scan of the Chest without Contrast: Clinical Indication: Lung mass Technique: Contiguous sections were acquired throughout the chest without intravenous contrast. Dose reduction technique was used on this scan by utilizing automated exposure control and iterative recon struction technique. The dose-length product (DLP) was 142.78 mGy-cm. COMPARISON: 07/07/2024 Findings: There is no evidence of any significant mediastinal, hilar or axillary lymphadenopathy. Extensive cor onary artery calcifications are present. There is no evidence of pleural or pericardial effusion. There are scattered irregular areas of groundglass opacification the lungs. There are also more confl uent areas of nodular somewhat masslike consolidation, particularly in the right lower lobe, largest such lesion measuring up to 3.2 cm in diameter (axial image 101). Mild emphysema. Images through the upper abdomen reveal somewhat nodular contour of the liver. Calcified gallstone pr esent. Impression: Scattered irregular groundglass opacities as well as additional more masslike confluent areas of cons olidation in the lungs, as above. Findings are worsened from prior exam. This could reflect worsening infectious/inflammatory process. Neoplastic disease not completely excluded, particularly in the lar kalpana masslike areas of consolidation. Continued follow-up at a minimum is advised. Cirrhotic change of the liver. Cholelithiasis. Reviewed, dictated and finalized at location M. S ADMINISTRATOR Impression: Scattered irregular groundglass opacities as well as additional more masslike c onfluent areas of consolidation in the lungs, as above. Findings are worsened f rom prior exam. This could reflect worsening infectious/inflammatory process. N eoplastic disease not completely excluded, particularly in the larger masslike areas of consolidation. Continued follow-up at a minimum is advised. Cirrhotic change of the liver. Cholelithiasis.
--- OUTSIDE RECORDS SUMMARY | 2024-11-08 11:49 | XMS_ITS | Clinical Summary ---
Author Organization [employer] Administrative Offices Address [address] [place] [address] Care Team Providers Care Print Shop Helper Name Role Phone Lisa Gamboa MD Primary Care Provider [phone] Allergies Active Allergy Reactions Criticality Noted Date Comments Sulfamethoxazole-Trimethoprim Unknown 2017 Trimethoprim Unknown 09/03/2018 Medications pramipexole (MIRAPEX) 0.5 mg tablet Take 0.5 mg by mouth daily at bedtime. Active multivitamin (DAILY-MALU) tablet Take 1 Tablet by mouth daily. Active ibuprofen (MOTRIN) 800 mg tablet Take 800 mg by mouth every 6 hours as needed for Pain, Mild. Active dexlansoprazole (DEXILANT) 30 mg capsule Take 30 mg by mouth daily. PRN for heartburn Active amLODIPine (NORVASC) 5 mg tablet Take 5 mg by mouth daily. Active fluticasone propionate (FLONASE) 50 mcg/spray [place], Suspension nasal inhaler Starting on 12-20-18 Administer 2 Sprays in each nostril daily. 16 Gram 12/19/2018 12:58 PM CDT 9 Active gabapentin (NEURONTIN) 100 mg capsule TAKE ONE CAPSULE BY MOUTH THREE TIMES DAILY 270 Capsule 3 9 Active loperamide (IMODIUM) 2 mg Tablet Take 2 mg by mouth 4 times daily as needed for Diarrhea/Loose Stools. Active potassium chloride (KLOR-CON) 10 mEq Extended Release tablet Take by mouth one time only. Pt unsure of dosage and takes as needed Active Magnesium Sulfate, Laxative, (Epsom Salt) 100 % Crystals 1 Dose by Misc.(Non-Drug; Combo Route) route 3 times daily. Please soak your foot in warm water and epsom salts tid 1360 Gram 0 Active traZODone (DESYREL) 50 mg tablet Take 50 mg by mouth daily at bedtime. Active cyanocobalamin 1,000 mcg Tablet Take 1 Tablet (1,000 mcg) by mouth daily. 30 Tablet 1 Active povidone-iodine (BETADINE) 10 % Swab Apply daily then cover with bandaid to contusion at left great toe region. 20 Each 1 Active oxyCODONE-aceta minophen (PERCOCET) 5-325 mg tabletIndicatio ns:Rib pain Take 1 Tablet by mouth every 4 hours as needed for break through pain. Max Daily Amount: 6 Tablets 20 Tablet 04/16/2021 5:59 PM CDT 1 Active sennosides-docu sate sodium (SENNA-S) 8.6-50 mg tablet Take 1 Tablet by mouth 2 times daily while taking narcotic pain medication. Then take 1 Tablet 2 times daily as needed for constipation 30 Tablet 1 1 Active budesonide-form oteroL (SYMBICORT) 160-4.5 mcg/actuation HFA Aerosol Inhaler Take 2 Puffs by inhalation 2 times daily. Active albuterol sulfate HFA 90 mcg/actuation aerosol inhaler 2 Puffs every 6 hours as needed. 4 Active tiotropium (SPIRIVA RESPIMAT) 2.5 mcg/actuation Mist Take by inhalation daily. Active Active Problems Problem Noted Date Diagnosed Date Left leg weakness 09/16/2024 Left sided sciatica 09/16/2024 Redness and swelling of lower leg 09/16/2024 Cellulitis of left foot 04/13/2021 S/P AKA (above knee amputation), right 1 Right-sided chest wall pain 04/13/2021 Chronic anemia 04/13/2021 Elevated troponin 04/13/2021 Elevated lactic acid level 04/13/2021 Essential hypertension 04/13/2021 COPD (chronic obstructive pulmonary disease) History of hepatitis C 04/13/2021 Depression with anxiety 04/13/2021 Cigarette smoker 04/13/2021 Abscess of left thumb 12/07/2020 Protein-calorie malnutrition, moderate Alcohol abuse 12/07/2020 Polyneuropathy 12/07/2020 Cellulitis of left lower extremity 12/17/2018 Iron deficiency anemia 12/17/2018 Hyponatremia 12/17/2018 Viral upper respiratory tract infection 12/18/19 Cerumen impaction 12/17/2018 Tobacco use 12/16/2018 PAD (peripheral artery disease) 10/06/2018 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 Cellulitis and abscess of hand Restless legs Encounters Date Type Department Care Team Description 10/20/2024 External Device Data [facility] Provider, Abstract 10/18/2024 External Device Data [facility] Provider, Abstract 10/11/2024 External Device Data [facility] Provider, Abstract 09/20/2024 External Device Data [facility] Provider, Abstract 09/15/2024 6:57 PM [employer] - 09/17/2024 3:40 PM [employer] Hospital Encounter [facility]ly [facility] Clinical Decision Unit [address] [place] [address] Lubna Cortes MD Juarez, Mayrol G, MD Idemudia, Osarenren, MD Left leg weakness Discharge Disposition: Home or Self Care 09/15/2024 Travel from Last 3 Months Family History Medical History Relation Name Comments Hypertension Mother Relation Name Status Comments Mother Social History Tobacco Use Types Packs/Day Years Used Date Smoking Tobacco: Heavy Smoker Cigarettes Cigars Smokeless Tobacco: Never Tobacco Cessation:Ready to Q uit: Yes Alcohol Use Standard Drinks/Week Comments Yes 7 (1 standard drink = 0.6 oz pur e alcohol) Feeling Safe Answer Date Recorded Are you in a relationship wi th someone who hurts you emotionally and/or physically? No 09/15/2024 Food Insecurity Answer Date Recorded Social/Environmental Concerns No concerns Transportation Needs Answer Date Record ed Social/Environmental Concerns No concerns Housing Stability Answer Date Recorded Social/Environmental Concerns No concerns Utility Needs Answer Date Recorded Social/Environmental Concerns No concerns Sex and Gender Information Value Date Recorded Sex Assigned at Not on file Legal Sex Male 12:26 PM CDT Gender Identity Not on file Sexual Orientation Not on file Last Filed Vital Signs Vital Sign Reading Time Taken Comments Blood Pressure 149/95 09/17/2024 12:00 PM [employer] Pulse 110 09/17/2024 12:00 PM [employer] Temperature 36.5 C (97.7 F) 09/17/2024 12:00 PM [employer] Respiratory Rate 20 09/17/2024 8:47 AM [employer] Oxygen Saturation 99% 09/17/2024 12:00 PM [employer] Inhaled Oxygen Concentration - - Weight 65.3 kg (144 lb) 09/15/2024 7:01 PM [employer] Height 172.7 cm (5' 8 ) 09/15/2024 7:01 PM [employer] Body Mass Index 21.9 09/15/2024 7:01 PM [employer] Plan of Treatment Health Maintenance Due Date Last Done Comments DTAP/TDAP/TD VACCINES (1 - Tdap) 1977 PNEUMOCOCCAL VACCINE 65+ YEARS (1 of 2 - PCV) 04/24/19 77 COLORECTAL SCREENING 2003 Colorectal Cancer Screening 2003 FIT-DNA Q 3 years 2003 FIT/FOBT Q 1 year 2003 Flex Sig/CT Colonography Q 5 years 2003 ZOSTER VACCINE (1 of 2) 2008 RSV VACCINE (60+ or ) (1 - Risk 60-74 years 1-dose series) 2018 Abdominal Aortic Aneurysm (AAA) Screening 2023 INFLUENZA VACCINE (#1) 2024 Procedures Procedure Name Priority Date/Time Associated Diagnosis Comments CBC WITHOUT DIFFERENTIAL Routine 09/17/2024 7:27 AM [employer] BASIC METABOLIC PANEL Routine 09/17/2024 7:27 AM [employer] MRI LUMBAR WO CONTRAST Pending Discharge 09/16/2024 8:42 PM [employer] OT EVAL AND TREAT Pending Discharge 09/16/2024 3:[address] [address] PELVIS WO CONTRAST Stat 09/16/2024 12:37 AM [employer] SEDIMENTATION RATE Stat 09/15/2024 10 :11 PM [employer] LACTIC ACID Stat 09/15/2024 10:11 PM [employer] CBC WITH DIFFERENTIAL Stat 09/15/2024 10:11 PM [employer] BLOOD CULTURE Stat 09/15/2024 10:11 PM [employer] BLOOD CULTURE Stat 09/15/2024 10:11 PM [employer] BLOOD CULTURE Stat 09/15/2024 10:11 PM [employer] BLOOD CULTURE Stat 09/15/2024 10:11 PM [employer] ETHANOL LEVEL Stat 09/15/2024 8:51 PM [employer] C-REACTIVE PROTEIN Stat 09/15/2024 8: 51 PM [employer] COMPREHENSIVE METABOLIC PANEL Stat 09/15/2024 8:51 PM [employer] XR ANKLE 3+ VW LEFT Stat 09/15/2024 8 :24 PM [employer] XR FEMUR 2 VW LEFT Stat 09/15/2024 8: 24 PM [employer] XR FOOT 3+ VW LEFT Stat 09/15/2024 8: 24 PM [employer] XR PELVIS 1 OR 2 VW Stat 09/15/2024 8 :23 PM [employer] from Last 3 Months Results * (ABNORMAL) CBC WITHOUT DIFFERENTIAL (09/17/2024 7:27 AM [employer]) [facility] WBC 5.8 4.0 - 9.8 K/uL 09/17/2024 8:23 AM [employer] [facility] RBC 3.77(L) 4.50 - 5.40 M/uL 09/17/2024 8:23 AM [employer] [facility] HEMOGLOBIN 10.4(L) 13.6 - 16.5 g/dL 09/17/2024 8:23 AM [employer] [facility] HEMATOCRIT 32.2(L) 40.0 - 48.0 % 09/17/2024 8:23 AM [employer] [facility] MCV 85.4 82.0 - 99.0 fL 09/17/2024 8:23 AM [facility] [employer] [facility] MCH 27.6 27.2 - 32.6 pg 09/17/2024 8:23 AM [facility] MCHC 32.3 31.5 - 35.5 g/dL 09/17/2024 8:23 AM [facility] PLATELETS 310 140 - 350 K/uL 09/17/2024 8:23 AM [facility] MPV 8.7(L) 9.3 - 12.4 fL 09/17/2024 8:23 AM [facility] RDW 15.6(H) 11.5 - 14.5 % 09/17/2024 8:23 AM [facility] RDW-STDEV 48.5 37.1 - 48.7 fL 09/17/2024 8:23 AM [facility] [employer] [facility] Blood Venipuncture / Unknown 09/17/2024 7:27 AM [employer] 09/17/2024 8:14 AM [employer] Saul Morley MD HEMATOLOGY ORDERABLES Lora l Result [facility] CLIA# [id number] [place] [address] * (ABNORMAL) BASIC METABOLIC PANEL (09/17/2024 7:27 AM [employer]) SODIUM 133(L) 136 - 145 mmol/L 09/17/2024 8:49 AM [facility] [employer] [facility] POTASSIUM 4.4 3.4 - 5.1 mmol/L 09/17/2024 8:49 AM [facility] [employer] [facility] CHLORIDE 102 98 - 107 mmol/L 09/17/2024 8:49 AM [facility] CO2 20(L) 22 - 29 mmol/L 09/17/2024 8:49 AM [facility] [employer] [facility] CALCIUM 8.7 8.6 - 10.4 mg/dL 09/17/2024 8:49 AM [facility] BUN 21(H) 6 - 20 mg/dL 09/17/2024 8:49 AM [facility] CREATININE 0.88 0.67 - 1.17 mg/dL 09/17/2024 8:49 AM [facility] GLUCOSE 102(H) 74 - 99 mg/dL 09/17/2024 8:49 AM [facility] GFR >60 >=60 mL/min/1.7 3 sq meter 09/17/2024 8:49 AM [facility] Comment:eGFR calculated with 2020 CKD-EPI equation. Vegetarian diet, extremely high or low muscle mass, and may affect results. Cystatin C with Glomerular Filtration Rate is a suitable alternative for these patients. ANION GAP 11 8 - 16 mmol/L 09/17/2024 8:49 AM [facility] Blood Venipuncture / Unknown 09/17/2024 7:27 AM [employer] 09/17/2024 8:14 AM [employer] Saul Morley MD CHEMISTRY ORDERABLES Final Result [facility] CLIA# [id number] [place] [address] * MRI LUMBAR WO CONTRAST (09/16/2024 8:42 PM [employer]) Anatomical Region Laterality Modality Spine Magnetic Resonan ce 09/16/2024 8:43 PM [employer] Impressions 09/16/2024 9:06 PM [employer] IMPRESSION: Severe L3-L4 and L4-L5 degenerative stenosis. DICTATION LOCATION: [address] Narrative 09/16/2024 9:06 PM [employer] MRI Lumbar Spine Without Contrast INDICATION: Lumbar radiculopathy left leg pain for one week TECHNIQUE: Multisequence, multiplanar MRI sequences of the lumbar spine without contrast FINDINGS: Lumbar spine is straightened. Advanced disc space narrowing L3-L4 and L4-L5 with 50% chronic compression deformities of L3 and L4. No bony edema. Spinal cord ends at L1-L2 and is normal. L1-L2: No stenosis L2-L3: Disc bulge and ligamentum flavum hypertrophy and mild canal stenosis and moderate bilateral neural foraminal narrowing. L3-L4: Disc bulge and ligamentum flavum hypertrophy and severe canal stenosis and severe bilateral neural foraminal narrowing. L4-5: Disc bulge and ligamentum flavum hypertrophy and moderate canal stenosis and moderate facet arthropathy and severe bilateral neural foraminal narrowing. L5-S1: No stenosis Procedure Note Hasmukh Feldman MD - 09/16/2024 MRI Lumbar Spine Without Contrast INDICATION: Lumbar radiculopathy left leg pain for one week TECHNIQUE: Multisequence, multiplanar MRI sequences of the lumbar spine without contrast FINDINGS: Lumbar spine is straightened. Advanced disc space narrowing L3-L4 and L4-L5 with 50% chronic compression deformities of L3 and L4. No bony edema. Spinal cord ends at L1-L2 and is normal. L1-L2: No stenosis L2-L3: Disc bulge and ligamentum flavum hypertrophy and mild canal stenosis and moderate bilateral neural foraminal narrowing. L3-L4: Disc bulge and ligamentum flavum hypertrophy and severe canal stenosis and severe bilateral neural foraminal narrowing. L4-5: Disc bulge and ligamentum flavum hypertrophy and moderate canal stenosis and moderate facet arthropathy and severe bilateral neural foraminal narrowing. L5-S1: No stenosis IMPRESSION: Severe L3-L4 and L4-L5 degenerative stenosis. DICTATION LOCATION: [address] [place] MORFIN MR ORDERABLES Final Result * CT PELVIS WO CONTRAST (09/16/2024 12:37 AM [employer]) Anatomical Region Laterality Modality Pelvis Computed Tomogra phy 09/16/2024 12:3 7 AM [employer] Impressions 09/16/2024 12:58 AM [employer] IMPRESSION: No acute abnormality of left hip or pelvis. The examination was performed with the adjustment of mA according to the patient size and/or the use of Iterative Reconstruction Technique. DICTATION LOCATION: Location [address] [place] [address] 09/16/2024 12:58 AM [employer] EXAM: CT PELVIS WITHOUT CONTRAST DATE: 09/16/2024 12:37 AM INDICATION: Left hip pain after injury FINDINGS: The left hip joint is imaged in external rotation. There is no acute fracture. There is mild to moderate atherosclerotic change with some joint space narrowing and subchondral sclerosis. There are small osteophytes. There is no periarticular mass, cyst or hematoma. The bony pelvis and proximal right femur are also without fracture, erosion or bony neoplasm. Procedure Note Mike Bedoya MD - 09/16/2024 EXAM: CT PELVIS WITHOUT CONTRAST DATE: 09/16/2024 12:37 AM INDICATION: Left hip pain after injury FINDINGS: The left hip joint is imaged in external rotation. There is no acute fracture. There is mild to moderate atherosclerotic change with some joint space narrowing and subchondral sclerosis. There are small osteophytes. There is no periarticular mass, cyst or hematoma. The bony pelvis and proximal right femur are also without fracture, erosion or bony neoplasm. IMPRESSION: No acute abnormality of left hip or pelvis. The examination was performed with the adjustment of mA according to the patient size and/or the use of Iterative Reconstruction Technique. DICTATION LOCATION: Location 1 - [facility] Lubna Cortes MD CT ORDERABLES Final Result * LACTIC ACID (09/15/2024 10:11 PM [employer]) Pathologist [facility] LACTIC ACID 2.0 <=2.0 mmol/L 09/15/2024 10:47 PM [employer] [facility] Blood BLOOD SPECIMEN / Unknown Venipuncture / Unknown 09/15/2024 10:11 PM [employer] 09/15/2024 10:27 PM [employer] Lulú Lara NP CHEMISTRY ORDERABLES Final Result [facility] CLIA# [id number] [place] [address] * (ABNORMAL) CBC WITH DIFFERENTIAL (09/15/2024 10:11 PM [employer]) Pathologist [facility] WBC 5.9 4.0 - 9.8 K/uL 09/15/2024 10:37 PM [employer] [facility] RBC 3.57(L) 4.50 - 5.40 M/uL 09/15/2024 10:37 PM [facility] HEMOGLOBIN 10.1(L) 13.6 - 16.5 g/dL 09/15/2024 10:37 PM [facility] HEMATOCRIT 31.3(L) 40.0 - 48.0 % 09/15/2024 10:37 PM [facility] MCV 87.7 82.0 - 99.0 fL 09/15/2024 10:37 PM [facility] MCH 28.3 27.2 - 32.6 pg 09/15/2024 10:37 PM [facility] MCHC 32.3 31.5 - 35.5 g/dL 09/15/2024 10:37 PM [facility] RDW 15.6(H) 11.5 - 14.5 % 09/15/2024 10:37 PM [facility] RDW-STDEV 50.1(H) 37.1 - 48.7 fL 09/15/2024 10:37 PM [facility] PLATELETS 280 140 - 350 K/uL 09/15/2024 10:37 PM [facility] MPV 8.8(L) 9.3 - 12.4 fL 09/15/2024 10:37 PM [facility] NEUTROPHILS 32 % 09/15/2024 10:37 PM [facility] LYMPHOCYTES 44 % 09/15/2024 10:37 PM [employer] [facility] MONOCYTES 13 % 09/15/2024 10:37 PM [employer] [facility] EOSINOPHILS 11 % 09/15/2024 10:37 PM [employer] [facility] BASOPHILS 1 % 09/15/2024 10:37 PM [facility] IMMATURE GRANULOCYTES 0 % 09/15/2024 10:37 PM [facility] NEUTROPHIL ABSOLUTE 1.87(L) 1.90 - 7.00 K/uL 09/15/2024 10:37 PM [facility] LYMPHOCYTE ABSOLUTE 2.56 0.70 - 4.50 K/uL 09/15/2024 10:37 PM [employer] [facility] MONOCYTE ABSOLUTE 0.76 0.10 - 1.30 K/uL 09/15/2024 10:37 PM [employer] [facility] EOSINOPHIL ABSOLUTE 0.62 0.00 - 0.70 K/uL 09/15/2024 10:37 PM [employer] [facility] BASOPHILS ABSOLUTE 0.06 0.00 - 0.20 K/uL 09/15/2024 10:37 PM [employer] [facility] IMMATURE GRANULOCYTES ABSOLUTE 0.02 0.00 - 0.03 K/uL 09/15/2024 10:37 PM [employer] [facility] Blood Venipuncture / Unknown 09/15/2024 10:11 PM [employer] 09/15/2024 10:37 PM [employer] Lulú Lara NP HEMATOLOGY ORDERABLES Final Result [facility] CLIA# [id number] [place] [address] * BLOOD CULTURE (09/15/2024 10:11 PM [employer]) Only the most recent of2 resultswithin the time period is included. [facility] BLOOD CULTURE No growth 09/21/2024 11:13 AM [employer] [facility] Blood (Peripheral) Venipuncture / Unknown 09/15/2024 10:11 PM [employer] 09/15/2024 10:25 PM [employer] Lulú Lara NP MICROBIOLOGY - GENERAL ORDE RABLES Final Result [facility] CLIA# [id number] [address] [place] [address] * SEDIMENTATION RATE (09/15/2024 10:11 PM [employer]) Pathologist [facility] ESR (SEDIMENTATION RATE) 14 0 - 20 mm/Hr 09/15/2024 10:45 PM [employer] [facility] Blood Venipuncture / Unknown 09/15/2024 10:11 PM [employer] 09/15/2024 10:37 PM [employer] Lulú Lara NP HEMATOLOGY ORDERABLES Final Result [id number] [address] [place] [address] * (ABNORMAL) C-REACTIVE PROTEIN (09/15/2024 8:51 PM [employer]) CRP 7.5(H) <5.0 mg/L 09/15/2024 9:26 PM [employer] [facility] Blood Venipuncture / Unknown 09/15/2024 8:51 PM [employer] 09/15/2024 8:59 PM [employer] Lulú Lara NP CHEMISTRY ORDERABLES Final Result Performing Organization Address City/[facility]/ZIP Co de Phone Number [facility] [id number] [address] [place] [address] * ETHANOL LEVEL (09/15/2024 8:51 PM [employer]) ETHANOL 25.00 No Ref Range Estab mg/dL 09/16/2024 12:58 AM [employer] [facility] ETHANOL % 0.03 %w/v 09/16/2024 12:58 AM [employer] [facility] Blood Venipuncture / Unknown 09/15/2024 8:51 PM [employer] 09/15/2024 8:59 PM [employer] Leandro Silvre MD CHEMISTRY ORDERABLES Final Resul t [facility] CLIA# [id number] [address] [place] [address] * (ABNORMAL) COMPREHENSIVE METABOLIC PANEL (09/15/2024 8:51 PM [employer]) [facility] Signature SODIUM 133(L) 136 - 145 mmol/L 09/15/2024 9:26 PM [facility] POTASSIUM 4.3 3.4 - 5.1 mmol/L 09/15/2024 9:26 PM [facility] CHLORIDE 103 98 - 107 mmol/L 09/15/2024 9:26 PM [facility] CO2 17(L) 22 - 29 mmol/L 09/15/2024 9:26 PM [facility] CALCIUM 9.0 8.6 - 10.4 mg/dL 09/15/2024 9:26 PM [facility] BUN 17 6 - 20 mg/dL 09/15/2024 9:26 PM [facility] CREATININE 0.81 0.67 - 1.17 mg/dL 09/15/2024 9:26 PM [facility] GLUCOSE 121(H) 74 - 99 mg/dL 09/15/2024 9:26 PM [facility] TOTAL PROTEIN 6.9 6.3 - 8.7 g/dL 09/15/2024 9:26 PM [facility] ALBUMIN 3.7 3.5 - 5.2 g/dL 09/15/2024 9:26 PM [facility] BILIRUBIN TOTAL 0.3 0.2 - 1.1 mg/dL 09/15/2024 9:26 PM [facility] ALKALINE PHOSPHATASE 92 40 - 150 U/L 09/15/2024 9:26 PM [facility] AST 35 0 - 41 U/L 09/15/2024 9:26 PM [facility] Comment:Hemolysis present. R esult may be falsely elevated. ALT 11 0 - 41 U/L 09/15/2024 9:26 PM [facility] GFR >60 >=60 mL/min/1.7 3 sq meter 09/15/2024 9:26 PM [employer] [facility] [employer] [facility] Comment:eGFR calculated with 2020 CKD-EPI equation. Vegetarian diet, extremely high or low muscle mass, and may affect results. Cystatin C with Glomerular Filtration Rate is a suitable alternative for these patients. ANION GAP 13 8 - 16 mmol/L 09/15/2024 9:26 PM [employer] [facility] Blood Venipuncture / Unknown 09/15/2024 8:51 PM [employer] 09/15/2024 8:59 PM [employer] us Lulú Lara NP CHEMISTRY ORDERABLES Final Result [facility] CLIA# [id number] [address] [place] [address] * XR ANKLE 3+ VW LEFT (09/15/2024 8:24 PM [employer]) Anatomical Region Laterality Modality Ankle / Foot Computed Radiogr aphy 09/15/2024 8:24 PM [employer] Narrative 09/15/2024 8:30 PM [employer] EXAMINATION: XR PELVIS 1 OR 2 VW, XR ANKLE 3+ VW LEFT, XR FEMUR 2 VW LEFT, XR FOOT 3+ VW LEFT DATE: 09/15/2024 8:23 PM HISTORY: Left lower extremity pain FINDINGS: AP PELVIS: Atherosclerotic calcifications, advanced lower lumbar spondylosis, and chronic appearing L4 compression fracture. The osseous pelvis and proximal femora are intact. LEFT FEMUR 2 VIEWS: Intact without fracture, dislocation, arthropathy, or focal bone lesion. LEFT ANKLE 3 VIEWS: Intact without fracture, dislocation, arthropathy, or focal bone lesion. LEFT FOOT 3 VIEWS: Great toe amputation and partial second and third toe amputations. There is no acute fracture, dislocation, arthropathy, or focal bone lesion. DICTATION LOCATION: Location - [facility] Procedure Note Sergei Cross MD - 09/15/2024 EXAMINATION: XR PELVIS 1 OR 2 VW, XR ANKLE 3+ VW LEFT, XR FEMUR 2 VW LEFT, XR FOOT 3+ VW LEFT DATE: 09/15/2024 8:23 PM HISTORY: Left lower extremity pain FINDINGS: AP PELVIS: Atherosclerotic calcifications, advanced lower lumbar spondylosis, and chronic appearing L4 compression fracture. The osseous pelvis and proximal femora are intact. LEFT FEMUR 2 VIEWS: Intact without fracture, dislocation, arthropathy, or focal bone lesion. LEFT ANKLE 3 VIEWS: Intact without fracture, dislocation, arthropathy, or focal bone lesion. LEFT FOOT 3 VIEWS: Great toe amputation and partial second and third toe amputations. There is no acute fracture, dislocation, arthropathy, or focal bone lesion. DICTATION LOCATION: Location [address] [place] [address] Lulú Lara NP DIAGNOSTIC IMAGING ORDERABL ES Final Result * XR FEMUR 2 VW LEFT (09/15/2024 8:24 PM JOB SETTER HONING) Anatomical Region Laterality Modality Lower Extremity Computed Radiogr aphy 09/15/2024 8:24 PM JOB SETTER HONING Narrative 09/15/2024 8:30 PM JOB SETTER HONING EXAMINATION: XR PELVIS 1 OR 2 VW, XR ANKLE 3+ VW LEFT, XR FEMUR 2 VW LEFT, XR FOOT 3+ VW LEFT DATE: 09/15/2024 8:23 PM HISTORY: Left lower extremity pain FINDINGS: AP PELVIS: Atherosclerotic calcifications, advanced lower lumbar spondylosis, and chronic appearing L4 compression fracture. The osseous pelvis and proximal femora are intact. LEFT FEMUR 2 VIEWS: Intact without fracture, dislocation, arthropathy, or focal bone lesion. LEFT ANKLE 3 VIEWS: Intact without fracture, dislocation, arthropathy, or focal bone lesion. LEFT FOOT 3 VIEWS: Great toe amputation and partial second and third toe amputations. There is no acute fracture, dislocation, arthropathy, or focal bone lesion. DICTATION LOCATION: [address] Procedure Note Sergei Cross MD - 09/15/2024 EXAMINATION: XR PELVIS 1 OR 2 VW, XR ANKLE 3+ VW LEFT, XR FEMUR 2 VW LEFT, XR FOOT 3+ VW LEFT DATE: 09/15/2024 8:23 PM HISTORY: Left lower extremity pain FINDINGS: AP PELVIS: Atherosclerotic calcifications, advanced lower lumbar spondylosis, and chronic appearing L4 compression fracture. The osseous pelvis and proximal femora are intact. LEFT FEMUR 2 VIEWS: Intact without fracture, dislocation, arthropathy, or focal bone lesion. LEFT ANKLE 3 VIEWS: Intact without fracture, dislocation, arthropathy, or focal bone lesion. LEFT FOOT 3 VIEWS: Great toe amputation and partial second and third toe amputations. There is no acute fracture, dislocation, arthropathy, or focal bone lesion. DICTATION LOCATION: [address] [place] Lulú Lara NP DIAGNOSTIC IMAGING ORDERABL ES Final Result * XR FOOT 3+ VW LEFT (09/15/2024 8:24 PM JOB SETTER HONING) Anatomical Region Laterality Modality Ankle / Foot Computed Radiogr aphy 09/15/2024 8:24 PM JOB SETTER HONING Narrative 09/15/2024 8:30 PM JOB SETTER HONING EXAMINATION: XR PELVIS 1 OR 2 VW, XR ANKLE 3+ VW LEFT, XR FEMUR 2 VW LEFT, XR FOOT 3+ VW LEFT DATE: 09/15/2024 8:23 PM HISTORY: Left lower extremity pain FINDINGS: AP PELVIS: Atherosclerotic calcifications, advanced lower lumbar spondylosis, and chronic appearing L4 compression fracture. The osseous pelvis and proximal femora are intact. LEFT FEMUR 2 VIEWS: Intact without fracture, dislocation, arthropathy, or focal bone lesion. LEFT ANKLE 3 VIEWS: Intact without fracture, dislocation, arthropathy, or focal bone lesion. LEFT FOOT 3 VIEWS: Great toe amputation and partial second and third toe amputations. There is no acute fracture, dislocation, arthropathy, or focal bone lesion. DICTATION LOCATION: [address] Procedure Note Sergei Cross MD - 09/15/2024 EXAMINATION: XR PELVIS 1 OR 2 VW, XR ANKLE 3+ VW LEFT, XR FEMUR 2 VW LEFT, XR FOOT 3+ VW LEFT DATE: 09/15/2024 8:23 PM HISTORY: Left lower extremity pain FINDINGS: AP PELVIS: Atherosclerotic calcifications, advanced lower lumbar spondylosis, and chronic appearing L4 compression fracture. The osseous pelvis and proximal femora are intact. LEFT FEMUR 2 VIEWS: Intact without fracture, dislocation, arthropathy, or focal bone lesion. LEFT ANKLE 3 VIEWS: Intact without fracture, dislocation, arthropathy, or focal bone lesion. LEFT FOOT 3 VIEWS: Great toe amputation and partial second and third toe amputations. There is no acute fracture, dislocation, arthropathy, or focal bone lesion. DICTATION LOCATION: [address] [place] Lulú Lara NP DIAGNOSTIC IMAGING ORDERABL ES Final Result * XR PELVIS 1 OR 2 VW (09/15/2024 8:23 PM JOB SETTER HONING) Anatomical Region Laterality Modality Pelvis Computed Radiogr aphy 09/15/2024 8:23 PM JOB SETTER HONING Narrative 09/15/2024 8:30 PM JOB SETTER HONING EXAMINATION: XR PELVIS 1 OR 2 VW, XR ANKLE 3+ VW LEFT, XR FEMUR 2 VW LEFT, XR FOOT 3+ VW LEFT DATE: 09/15/2024 8:23 PM HISTORY: Left lower extremity pain FINDINGS: AP PELVIS: Atherosclerotic calcifications, advanced lower lumbar spondylosis, and chronic appearing L4 compression fracture. The osseous pelvis and proximal femora are intact. LEFT FEMUR 2 VIEWS: Intact without fracture, dislocation, arthropathy, or focal bone lesion. LEFT ANKLE 3 VIEWS: Intact without fracture, dislocation, arthropathy, or focal bone lesion. LEFT FOOT 3 VIEWS: Great toe amputation and partial second and third toe amputations. There is no acute fracture, dislocation, arthropathy, or focal bone lesion. DICTATION LOCATION: [address] Procedure Note Sergei Cross MD - 09/15/2024 EXAMINATION: XR PELVIS 1 OR 2 VW, XR ANKLE 3+ VW LEFT, XR FEMUR 2 VW LEFT, XR FOOT 3+ VW LEFT DATE: 09/15/2024 8:23 PM HISTORY: Left lower extremity pain FINDINGS: AP PELVIS: Atherosclerotic calcifications, advanced lower lumbar spondylosis, and chronic appearing L4 compression fracture. The osseous pelvis and proximal femora are intact. LEFT FEMUR 2 VIEWS: Intact without fracture, dislocation, arthropathy, or focal bone lesion. LEFT ANKLE 3 VIEWS: Intact without fracture, dislocation, arthropathy, or focal bone lesion. LEFT FOOT 3 VIEWS: Great toe amputation and partial second and third toe amputations. There is no acute fracture, dislocation, arthropathy, or focal bone lesion. DICTATION LOCATION: [address] Lulú Lara NP DIAGNOSTIC IMAGING ORDERABL ES Final Result from Last 3 Months Insurance [facility] [id number] [facility] MEDICAID RX [employer] RX Member Subscriber Plan / Payer (Ef fective 2021-Present) Name:Jack Lund Relation to Subscriber:Not on file Name:Jack Lund Subscriber ID:Not on file Payer ID:Not on file Group ID:[id number] Type:RX Medicare Part D Address: [address] Advance Directives For more information, please contact: [phone] * Default Full Code - Needs Discussion (Latest Code Status on File) Date Activated Date Inactivated Comments 09/16/2024 3:33 AM 09/17/2024 5:46 PM * Full Code Date Activated Date Inactivated Comments 04/13/2021 7:38 PM 04/16/2021 8:54 PM * Full Code Date Activated Date Inactivated Comments 12/07/2020 11:27 PM 12/10/2020 8:12 PM * Full Code Date Activated Date Inactivated Comments 12/17/2018 4:34 AM 12/19/2018 4:58 PM Care Teams Print Shop Helper Relationship Specialty Start Date End Date Lisa Gamboa MD [address] [place] [address] PCP - General Internal Medicine 08/30/18
--- OUTSIDE RECORDS SUMMARY | 2024-11-08 11:49 | XMS_ITS | Encounter Summary ---
Author Organization [facility] Address 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 Encounter Details Date Type Department Care Team (Late st Contact Info) Description 04/13/2021 Telephone [facility] Admitting [address] [place] [address] [place] [phone] [facility] Babak [facility] [address] [place] [address] left foot cellulitis (Left nurses number 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 No / Unsure 04/13/2021 2:51 PM CDT documented as of this encounter Plan of Treatment Not on file documented as of this encounter Visit Diagnoses Not on filedocumented in this encounter Additional Health Concerns Infection Onset Date Last Indicated Resolved Time MRSA Comment:Resolved per Type and Duration of Precautions Recommended for Selected Infections and Conditions document 2023 update 12/18/2018 12/18/2018 06/13/20 24 4:18 PM CDT Assessment Noted Time PHQ-9 Depression Total Score: 1 04/13/20 21 7:30 PM CDT documented as of this encounter Care Teams Line Worker Relationship Specialty Start Date End Date Lisa Gamboa MD [address] [place] [address] PCP - General Internal Medicine 08/30/18 documented as of this encounter
--- OUTSIDE RECORDS SUMMARY | 2024-11-08 11:49 | XMS_ITS | Encounter Summary ---
Author Organization [facility] Address [address] [place] [address] Care Team Providers Care Director Of Marketing And Promotions Name Role Phone Lisa Gamboa MD Primary Care Provider [phone] Reason for Visit * Reason Onset Date Comments possible osteomylitis 04/13/2021 Gave to Joaquin baker at [employer] Encounter Details Date Type Department Care Team (Late st Contact Info) Description 04/13/2021 Telephone [facility] Admitting [address] [place] [address] Rojelio Jarvis DPM [id number] [address] possible osteomylitis (Gave to Charlie at [facility]) Social History Tobacco Use Types Packs/Day Years [...] and Conditions document 2023 update 12/18/2018 12/18/2018 09/16/20 24 4:18 PM CDT Assessment Noted Time PHQ-9 Depression Total Score: 1 04/13/20 21 7:30 PM CDT documented as of this encounter Care Teams Director Of Marketing And Promotions Relationship Specialty Start Date End Date Lisa Gamboa MD [address] [place] [id number] PCP - General Internal Medicine 08/30/18 documented as of this encounter
--- OUTSIDE RECORDS SUMMARY | 2024-11-08 11:49 | XMS_ITS | CONTINUITY OF CARE DOCUMENT ---
Author Name jenny, janettser Address Unknown Organization [facility] Address [address] [place] [address] Phone [phone] Care Team Providers Care Machine Driller Name Role Phone Jose Luis Quintana MD Unavailable NELA ESCALANTE MD Unavailable NELA ESCALANTE MD Unavailable PROBLEMS Condition Status Date Provider Notes ALCOHOL ABUSE - STOPPED 3 WEEKS active Jose Luis Quintana MD HEPATITIS C/LIVER CIRROHOSIS-IN REMISSION/FOLLOWS GI YEARLY active Jose Luis Quintana MD ERECTILE DYSFUNCTION active Jose Luis Quintana MD PVD -RIGHT TOE AMPUTATION-07/08 YISSEL NL active Jose Luis Quintana MD In sco oter for foot ulcers TOBACCO ABUSE active Jose Luis Quintana MD SHORTNESS OF BREATH - COPD-07/07 HIEN, MILD AO active ? Mp Miranda RN ENCOUNTERS Date Type Provider Location Encounter Diag nosis - In-person encounter Office Visit Jose Luis Quintana MD [facility] PVD -RIGHT TOE AMPUTATION-07/08 YISSEL NLHEPATITIS C/LIVER CIRROHOSIS-IN REMISSION/FOLLOWS GI YEARLY - In-person encounter Office Visit Jose Luis Quintana MD [facility] - In-person encounter Office Visit Jose Luis Quintana MD [facility] ALCOHOL ABUSE - STOPPED 3 WEEKS - In-person encounter Office Visit Jose Luis Quintana MD [facility] - In-person encounter Office Visit Jose Luis Quintana MD [facility] SHORTNESS OF BREATH - COPD-07/07 HIEN, MILD AOTOBACCO ABUSEPVD -RIGHT TOE AMPUTATION-07/08 YISSEL NLERECTILE DYSFUNCTIONHEPATITIS C/LIVER CIRROHOSIS-IN REMISSION/FOLLOWS GI YEARLY VITAL SIGNS Date Observation Value Provider blood pressure, diastolic, left arm 77 mm [Hg] Ro Miller blood pressure, systolic, left arm 121 mm [Hg] Ro Miller blood pressure, diastolic, right arm 70 m m[Hg] Marquisgaby Miller blood pressure, systolic, right arm 118 m m[Hg] Marquisgaby Miller blood pressure, diastolic 77 mm[Hg] Peters blood pressure, systolic 121 mm[Hg] Marquis Miller pulse rate 64 /min [facility], oximetry 99 % [facility] respiratory rate E&M 16 /min Marquisgaby Miller weight E&M 162 [lb_av] Marquisgaby [place] blood pressure, diastolic, left arm 82 mm [Hg] Marquisgaby Miller blood pressure, systolic, left arm 110 mm [Hg] [facility] [place] blood pressure, diastolic, right arm 65 m m[Hg] Marquisgaby Miller blood pressure, systolic, right arm 105 m m[Hg] Marquisgaby [place] blood pressure, diastolic 82 mm[Hg] Parson Miller blood pressure, systolic 110 mm[Hg] Marquis gonzalez Miller pulse rate 76 /min [facility] [place] oxygen saturation, oximetry 97 % [facility] respiratory rate E&M 16 /min [facility] weight E&M 165 [lb_av] Ro Miller blood pressure, diastolic 79 mm[Hg] Feliberto Miranda RN blood pressure, systolic 133 mm[Hg] Mp Miranda RN pulse rate 80 /min Mp Miranda RN oxygen saturation, oximetry 96 % Mp Miranda RN respiratory rate E&M 18 /min Mp binghamkimberly RN weight E&M 201 [lb_av] Mp Miranda RN blood pressure, diastolic 97 mm[Hg] Bess simmonsha O'Amos blood pressure, systolic 153 mm[Hg] Fay peguero O'[facility]os pulse rate 87 /min Jennifer O'Amos oxygen saturation, oximetry 98 % Jennifer O'Amos respiratory rate E&M 20 /min Jennifer O'Amos weight E&M 186 [lb_av] Jennifer O'Amos blood pressure, diastolic 94 mm[Hg] Be tsy Casey blood pressure, systolic 146 mm[Hg] Bet sy Casey ALLERGIES Allergy Name Onset Date Reaction Criticality Status BACTRUM High Criticality active RESULTS Date Observation Value Provider Reference Range Interpretation Location globulins, serum, total 3.2 g/[facility] Estimated Glomerular Filtration Rate (calc) >59 [facility] albumin/globulin ratio, serum 1.1 [facility] protein, total, serum 6.7 g/dL [facility] albumin, serum 3.5 g/dL [facility] bilirubin, serum, total 1.0 mg/dL [facility] alkaline phosphatase, serum 150 1/L [facility] alanine aminotransferase (SGPT), serum 62 1/L [facility] aspartate aminotransferase (SGOT), serum 166 1/L [facility] calcium, serum 8.5 mg/dL [facility] blood glucose, fasting 117 mg/dL [facility] creatinine, serum 0.91 mg/dL [facility] urea nitrogen, blood 5 mg/dL [facility] carbon dioxide, serum, total 23 mmol/L [facility] chloride, serum 95 mmol/L [facility] potassium, serum 3.7 mmol/L [facility] sodium, serum 134 mmol/L [facility] platelet count 167 10*3/uL [facility] red blood cell distribution width 14.6 % [facility] mean corpuscular hemoglobin concentration, RBC 33.8 g/dL [facility] mean corpuscular hemoglobin, RBC 39.7 pg [facility] mean corpuscular volume, RBC 118 fL [facility] hematocrit, blood 39.1 % [facility] hemoglobin, blood 13.2 g/dL [facility] erythrocyte (RBC) count 3.32 10*6/mm3 [facility] monocyte count, blood 0.7 10*3/mm3 [facility] lymphocyte count, blood 2.6 10*3/mm3 [facility] monocytes as percent of blood leukocytes 11 % [facility] lymphocytes as percent of blood leukocytes 42 % [facility] leukocyte count, blood 6.3 10*3/mm3 [facility] HISTORY OF MEDICATION USE Medication Status Instructions Dates Provider Indications [facility] ments CYMBALTA 60 MG ORAL CAPSULE DELAYED RELEASE PARTICLES active 1 tab daily Ro Miller THIAMINE HCL 100 MG ORAL TABLET completed po once daily - Ro Miller FUROSEMIDE 20 MG ORAL TABLET active po once daily Jose Luis Quintana MD GABAPENTIN 300 MG ORAL CAPSULE completed ONE TAB. three times daily DAILY - Ro Miller AMLODIPINE BESYLATE 5 MG ORAL TABLET active ONE TAB. DAILY Mp Miranda RN POTASSIUM CHLORIDE FRANCES ER 20 MEQ ORAL TABLET EXTENDED RELEASE active two TAB. DAILY Jose Luis Quintana MD CYCLOBENZAPRINE HCL 10 MG ORAL TABLET completed for 2 weeks - Ro Miller TRAMADOL HCL TABLET active 50mg as needed Leta Miranda RN LANSOPRAZOLE 30 MG ORAL CAPSULE DELAYED RELEASE active daily Mp Miranda RN DARVOCET-N 100 100-650 MG TABS completed 1 tab by mouth as needed - Mp Miranda RN NITROSTAT 0.3 MG SUBLINGUAL TABLET SUBLINGUAL completed prn for chest pain - Jose Luis Quintana MD PROAIR HFA 108 (90 Base) MCG/ACT INHALATION AEROSOL SOLUTION active 2 puffs four times a day Jose Luis Quintana MD MIRAPEX 0.125 MG ORAL TABLET completed 1 tab daily - Ro Miller IBUPROFEN 800 MG ORAL TABLET active 1 tab three times daily Sasha Blunt [facility] POTASSIUM GLUCONATE TABLET completed 1 tab daily - Mp Miranda RN MENS MULTIVITAMIN PLUS ORAL TABLET active 1 tab daily Sasha Blunt OSTEO BI-FLEX JOINT SHIELD ORAL TABLET active 2 caps daily Sasha Blunt B-12 TR TABLET EXTENDED RELEASE active 1000mcg tab daily Sasha Blunt SOCIAL HISTORY Date Observation Value Provider social history reviewed E&M reviewed Mp Miranda RN social history reviewed E&M reviewed Mp Miranda RN smoking/tobacco cess ation, patient education and counseling yes Mp Miranda RN social history reviewed E&M reviewed Mp Miranda RN social history reviewed E&M reviewed Mp Miranda RN social history E&M Marital Statu s: Single L gulshan alone E thnicity: Mp Miranda RN social history reviewed E&M reviewed Mp Miranda RN physical exercise, f requency, days per week yes [employer] caffeine use, averag e drinks per day no [employer] alcohol use, average drinks per day 1-3 drinks per day [employer] number of years as a smoker 10 years or m ore [employer] smoking status Smoker [employer] physical exercise, f requency, days per week yes [facility] caffeine use, averag e drinks per day no [facility] alcohol use, average drinks per day 1-3 drinks per day [facility] number of years as a smoker 10 years or m ore [facility] smoking status Smoker [facility] smoking status current Emily Songnard FUNCTIONAL STATUS Date Observation Value Provider periodic limb movement index absent (0) Emily Songnard MENTAL STATUS Date Observation Value Provider assessment of judgme nt and insight E&M Alert and oriented to time, place and person. Mood and affect are normal. Mp Miranda RN assessment of judgme nt and insight E&M Alert and oriented to time, place and person. Mood and affect are normal. Mp Miranda RN assessment of judgme nt and insight E&M Alert and oriented to time, place and person. Mood and affect are normal. Mp Miranda RN assessment of judgme nt and insight E&M Alert and oriented to time, place and person. Mood and affect are normal. Mp Miranda RN assessment of judgme nt and insight E&M Alert and oriented to time, place and person. Mood and affect are normal. Mp Miranda RN INSURANCE PROVIDERS Payer name Policy type / Coverage type [place] red republican ID [facility] CHRONIC COMPLETE ASSURE (PPO C-SNP) Medicare [id number] [facility] Medicaid 0 [id number] TREATMENT PLAN Date Name Spirometry Complete Echo Carotid Duplex Bilat eral Arterial Duplex Lowe r Extremity Bilateral Venous Doppler Bilat eral LE Arterial Duplex Lowe r Extremity Bilateral Spirometry Complete Echo HISTORY OF PROCEDURES Procedure Date Procedure Name Provider Procedure Notes S tatus EKG Jose Luis Quintana MD complet ed ePrescribe - Check t his box if eRx is used Jose Luis Quintana MD completed
--- OUTSIDE RECORDS SUMMARY | 2024-11-08 11:49 | XMS_ITS | Clinical Summary ---
Author Organization [facility] Address [address] [place] [address] Care Team Providers Care Theater Set Production Designer Name Role Phone Unavailable Primary Care Provider Unavailabl e Social History Tobacco Use Types Packs/Day Years Used Date Smoking Tobacco: Never Assessed Sex and Gender Information Value Date Recorded Sex Assigned at Not on file Legal Sex Male 6:58 AM CDT Gender Identity Not on file Sexual Orientation Not on file Last Filed Vital Signs Vital Sign Reading Time Taken Comments Blood Pressure 134/88 12/22/2016 10:51 AM CDT Pulse 88 12/22/2016 10:51 AM CDT Temperature - - Respiratory Rate - - Oxygen Saturation - - Inhaled Oxygen Concentration - - Weight 67.7 kg (149 lb 3.2 oz) 12/22/2016 10:51 AM CDT Height 172.7 cm (5' 8 ) 12/22/2016 10:51 AM CDT Body Mass Index 22.69 12/22/2016 10:51 AM CDT Plan of Treatment Health Maintenance Due Date Last Done Comments Colorectal Cancer Screening Colonoscopy (10 Years) 1958 Hepatitis C 1976 DTaP, Tdap and Td Vaccines ( 1 - Tdap) 1977 Zoster Vaccines (1 of 2) 2008 Annual Medicare Wellness Visit 2023 Pneumococcal Vaccine: 65+ Ye ars (1 of 1 - PCV) 2023 COVID-19 Vaccine ( - 2023-2 5 season) 2024 Influenza Adult (#1) 2024 RSV Immunization or 60+ Years (1 - 1-dose 75+ series) 2033 Meningococcal B Vaccine Aged Out No l onger eligible based on patient's age to complete this topic Meningococcal Vaccine Aged Out No marti kalpana eligible based on patient's age to complete this topic RSV Immunizations Under 20 Months Aged Out No longer eligible based on patient's age to complete this topic Additional Health Concerns Infection Onset Date Last Indicated MRSA 05/04/2017 05/04/2017 Insurance MEDICAID MEDICARE
--- OUTSIDE RECORDS SUMMARY | 2024-11-08 11:49 | XMS_ITS | Encounter Summary ---
Author Organization [facility] Address [address] [place] [address] Care Team Providers Care Die Attacher Name Role Phone Lisa Gamboa MD Primary Care Provider [phone] Reason for Visit * Reason Onset Date Comments LEFT THUMB INFECTION 12/08/2020 SPOKE W/ DR KING LEFT THUMB INFECTION 12/08/[address] ON [address] TILLEY'S EXCHANGE Encounter Details Date Type Department Care Team (Late st Contact Info) Description 12/08/2020 [facility]phone [facility] [address] [place] [address] Apoorva Shah, OUTSIDE SALESMAN [address] [address] LEFT THUMB INFECTION (SPOKE W/ DR KING); LEFT THUMB INFECTION (LEFT VOICEMAIL ON DR TILLEY'S EXCHANGE) Social History Tobacco Use Types Packs/Day Years [...] have Coronavirus / COVID-19? 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 documented as of this encounter Plan of Treatment Not on file documented as of this encounter Visit Diagnoses Not on filedocumented in this encounter Additional Health Concerns Infection Onset Date Last Indicated Resolved Time MRSA Comment:Resolved per Type and Duration of Precautions Recommended for Selected Infections and Conditions document 4 update 12/18/2018 12/18/2018 06/13/20 24 4:18 PM CDT documented as of this encounter Care Teams Die Attacher Relationship Specialty Start Date End Date Lisa Gamboa MD [address] [place] [address] PCP - General Internal Medicine 08/30/18 documented as of this encounter
--- OUTSIDE RECORDS SUMMARY | 2024-11-08 11:49 | XMS_ITS | Data Portability ---
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 Name Role Phone LISA ESCALANTE Primary Care Provider [phone] LISA ESCALANTE Referring Provider [phone] Assessment Encounter Date Assessment Date Assessment LastModified by Organization Details LastModified Time 08/02/2024 08/02/2024 Assessment: IgE 674 IU/mL Nicotine smoke: 09/29 ppd [id number] = 21.5 pack years, 2 cigars/day 2018-present Mild COPD Endobronchial masses RML/RLL pneumonia Plan: The following were reviewed and explained to the patient: PFT 10/09/22 FEV1 2.83 L (91%) Chest CT 11/06/22 nodular liver, cholelithiasis, no pulm nodules Chest CT 03/07/24 RLL 2.6 x 4.9 x 3.4 cm and 2.2 x 2.3 x 0.6 cm spiculated endobronchial masses PET/CT 07/07/24 RML/RLL pneumonia Lab data 10/28/22 high IgE Nicotine cessation counseling provided. [place] for quitting nicotine include getting ready, getting support and encouragement, learning new skills and behaviors and being prepared to handle slips. Tips for dealing with cravings provided. Prevention of subsequent illnesses from nicotine addiction discussed. Comorbidities include but are not limited to hypertension, cerebrovascular disease, coronary heart disease, congestive heart failure, hyperlipidemia, COPD/asthma, peptic ulcer disease, esophagitis/gastri tis, and osteoporosis. Therapy options offered include: Quitting by total abstinence Receiving nicotine replacement therapy Undergoing hypnosis Filling a bupropion or varenicline prescription Enrolling in Quit For Life program Registering at [email or web address] Making a call to 9-927-STYZ-NOW ( ). A strong, clear, personalized message was given to the patient to quit smoking. The patient was urged to set a quit date. We discussed patient's barriers to quitting and I will be of assistance when patient is ready to quit. I encouraged patient to inform friends and family of plans to quit with a request for support. I encouraged the patient to remove all cigarettes from the environment. We reviewed any previous quit attempts and lessons learned from them. I encouraged total abstinence from smoking and advised the patient that drinking alcohol and/or associating with other smokers are associated with failure or relapse. Patient can enroll in [facility]'s smoking cessation class through Whitney Ariza RN at . Enrollment is free and classes are held every thursday of the month from 1:30 pm to 2:30 pm at the conference room next to the cafeteria on the ground floor. The [employer] [employer] recommends annual screening for lung cancer with low-dose computed tomography (LDCT) for people aged 50 to 80 years old who smoke or formerly smoked and have a 20-year or greater pack-year history. Screening is no longer discontinued even when a person has not smoked for [address] and PFT ANDREE. Chest CT to ensure the resolution of pneumonia and endobronchial masses as endobronchial masses could lead to postobstructive pneumonia. Continue albuterol HFA as needed. Continue Spiriva Respimat 2.5 mcg 2 puffs daily. Continue Symbicort HFA 160/4.5 mcg 2 puffs BID. Gargle after use. The patient does not know how to accurately administer the inhalers. Today, the patient was shown how to take these medications. The proper technique for delivering these medications was instructed. The patient expressed a clear understanding and demonstrated back how to use these medications. Without the proper technique, the patient will not reap the benefits of these medications as the contents will not reach the lower airways as intended to be. Adherence to therapy is advocated. Nonadherence may lead to treatment failure, further progression of the condition, and other complications. Hospitals admissions are often the result of individuals not taking prescription medications accurately. Alternatively, greater adherence to medication regimens have shown to lower rates of hospitalization and decrease total medical costs in patients with chronic medical conditions. Advocated influenza vaccination annually and pneumonia vaccination ANDREE. Encouraged patient to adjust caloric intake to maintain/achieve ideal body weight, emphasizing on fruits, vegetables, whole grains, and fat-free or low-fat products. These include lean meats, poultry, fish, beans, eggs, and nuts and foods that are low in saturated fats, trans-fats, cholesterol, salt (sodium), and glycemic index. Stressed the importance of regular exercise up to the patient's capacity limits. In this case, we recommend 20 min daily walking, 2 days a week of resistance training. Patient to monitor BP daily and bring records to PCP for further management. Follow-up: [address] and PFT [email or web address] Not available 08/02/2024 17:46:10 Plan of Treatment Reminders Order Date Submit Date Provider Last Modified By Organization Details Last Modified Time Details Appointments None recorded. Lab None recorded. Referral None recorded. Procedures None recorded. Surgeries None recorded. Imaging CT, chest, w/o contrast - Please call patient to schedule. [address], [address] [place] [address] [address], [place], [address], 08:37:59 Medication Orders albuterol sulfate HFA 90 mcg/actuati on aerosol inhaler 2023 [facility] [employer] #[id number], [address] [place], [place], [id number], 17:46:35 Spiriva Respimat 2.5 mcg/actuati on solution for inhalation 2023 [id number], [address] [place], [place], [id number], 17:46:35 Symbicort 160 mcg-4.5 mcg/actuati on HFA aerosol inhaler 2023 [facility] #[id number] [place], [place], [id number], 17:46:34 Patient TargetsNo targets recorded. Patient Instructions Encounter Date Encounter Id Patient Instructions Last Modified By Organization Details Last Modified Time 08/02/2024 [id number] complete PFT w/ post bronchodilator spirometry* - Please call patient to schedule. MILO [id number] between 08/03/2024- 024 per [facility] payor portal, ref #[id number] Not available 09/06/2024 08:38:35 Reason for Referral None Reported. Results Created Date Observation Date Name Description Value Unit Range Abnormal Flag Note LastModifiedBy Organization Detail LastModifiedTime 03/10/20 22 03/06/2022 XR, elbow , 3 or more view No observ ation record ed. [id number] Not Available 11/26/2022 06:54:46 03/19/20 22 03/19/2022 [facility], [facility] , [facility] [address] [address] Sasha mercer Name: SAAD GARNETT LYNDA Access ion #: [id number] Sex: M : 1959 4 Locati on: RAD Attend ing Physic rudy: VIKTOR HANDLEY Orderi ng Physic rudy: VIKTOR HANDLEY Exam Date: 022 12:33 PM Exam Name: MRI ELBOW RT WO Admitt ing Diagno sis(es ): RADIOL OGY REPORT - FINAL EXAM: MRI ELBOW RT WO HISTOR Y: right elbow pain COMPAR BETINA: Radiog raph 2021 TECHNI QUE: Multip lanar multis equenc e noncon trast MR images of the right elbow were perfor med. FINDIN GS: Osseou s: Marrow edema is noted within the proxim al radial shaft there is a nondis placed obliqu e fractu re of the proxim al nerve shaft. The the proxim al radial head is intact aligni ng with the capite llum. The distal humeru s is intact . Marrow edema is noted within the proxim al ulna compat ible with a focal contus ion. Page 1 of 2 [facility] Sasha mercer Name: SAAD GARNETT LYNDA Access ion #: [id number] Sex: M : 1959 4 Exam Date: 12:33 PM Exam Name: MRI ELBOW RT WO Admitt ing Diagno sis(es ): Joint space: No signif icant joint effusi on Bursa: There is eviden ce of mild to modera te comple x bursit is within the olecra non bursa. Muscul ature: Grossl y intact . Tendon s: Grossl y intact Ligame nts: Grossl y preser lai. IMPRES GENNY: 1. Imagin g demons trates nondis placed trabec ular fractu re of the proxim al ulna and a nondis placed obliqu e fractu re of the proxim al radial shaft. 2. Mild to modera te comple x bursit is residu als descri bed above. Create d and electr onical ly signed by: Hasmukh zhou MD Signed Date: 2:56 PM (CT) Dictat ed by: Hasmukh zhou MD DD: 2:55 PM (CT) DT: 2:55 PM (CT) Page 2 of 2 [id number] [facility] (Imaging) [address] [place], [address], 11/26/2022 06:54:46 04/01/2004/01/2022 MRI, cervi alem spine , w/o contr ast [facility] [address] [place] [address] Patien t Name: LYNDA LI Access ion #: [id number] Sex: M : 1959 5 Locati on: RAD Attend ing Physic rudy: VIKTOR HANDLEY [facility] Physic rudy: VIKTOR HANDLEY Exam Date: 04/01/20 1:48 PM Exam Name: MRI C SPINE WO Admitt ing Diagno sis(es ): RADIOL OGY REPORT - FINAL EXAM: MRI C SPINE WO HISTOR Y: neck pain with right upper arm pain 61-yea r-old male with neck pain, right arm pain, right arm weakne ss. COMPAR BETINA: MRI of the cervic al spine dated 2016; CT scan of the cervic al spine dated 2018. TECHNI QUE: Multip lanar multis equenc e noncon trast MR images of the cervic al spine were perfor med. FINDIN GS: No fractu res are identi fied about the cervic al spine. 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 No eviden ce of cerebe llar tonsil lar ectopi a. No abnorm al signal in the cervic al spinal cord. There is mucosa l thicke megan Page 1 of 3 [facility] Name: LYNDA LI Access ion #: [id number] Sex: M : 1959 5 Exam Date: 04/01/20 1:48 PM Exam Name: MRI C SPINE WO Admitt ing Diagno sis(es ): in the bilate ral maxill tianna sinuse s, greate r on the right. C2-C3: There is a minima l circum ferent ial broad disc bulge. There is mild bilate ral facet hypert rophy. The AP dimens ion of the spinal canal measur es 9.7 mm. There is mild bilate ral neural forami nal stenos is. C3-C4: There is a mild circum ferent ial broad disc bulge. The AP dimens ion of the spinal canal measur es 9.4 mm. There is mild bilate ral facet and left uncina te proces s hypert rophy. There is mild bilate ral neural forami nal stenos is. C4-C5: There is slight loss of disc height . There is a mild circum ferent ial broad disc bulge. The AP dimens ion of the spinal canal measur es 9.7 mm. There is mild flatte megan of the anteri or margin of the cervic al spinal cord at this level. No signif icant neural forami nal stenos is bilate rally. C5-C6: There is disc desicc ation and loss of disc height . There is a circum ferent ial broad disc bulge with endpla te hypert rophy. There is mild mass effect on the anteri or margin of the cervic al spinal cord at this level. There is bilate ral facet and uncina te proces s hypert rophy. There is severe bilate ral neural forami nal stenos is. C6-C7: There is disc desicc ation and near comple te loss of disc height . There is a circum ferent ial broad disc bulge with endpla te hypert rophy. The AP dimens ion of the spinal canal measur es 7 mm. There is bilate ral facet and uncina te proces s hypert rophy. There is severe bilate ral neural forami nal stenos is. IMPRES GENNY: Page 2 of 3 [facility] t Name: LYNDA LI Access ion #: [id number] Sex: M : 1959 5 Exam Date: 04/01/20 1:48 PM Exam Name: MRI C SPINE WO Admitt ing Diagno sis(es ): 1. No fractu re of the cervic al spine. 2. 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 There is mass effect on the cervic al spinal cord at C4-C5 and C5-C6. 3. Degene rative disc diseas e and facet arthro ida cause signif icant neural forami nal stenos is bilate rally at C5-C6 and C6-C7. These findin gs may corres pond to upper extrem ity radicu lar sympto ms in the bilate ral C6 and C7 nerve root distri bution s. Create d and electr onical ly signed by: Garth espinal MD Signed Date: 04/01/20 9:41 PM (CT) Dictat ed by: Garth espinal MD 22 9:41 PM (CT) 22 9:41 PM (CT) Page 3 of 3 [id number] [facility] (Im[facility]) [address] [place], [address], 11/26/2022 06:54:46 10/13/19 23 10/09/2022 PFT, compl ete No observ ation record ed. [id number] Not Available 11/26/2022 06:54:46 11/06/19 23 11/05/2022 LDCT, chest , for lung cance r scree megan No observ ation record ed. [id number] [facility] [address] [place], [address], 11/26/2022 06:54:46 12/05/19 23 12/04/2022 US, abdom en No observ ation record ed. [email or web address] [facility] [address] [place], [address], 12/05/2022 08:50:41 03/11/20 24 03/07/2024 LDCT, chest , for lung cance r scree megan No observ ation record ed. BAR[facility] Not Available 2023 16:42:36 07/29/20 24 07/07/2024 PET-C T, skull base to mid-t high scan No observ ation record ed. [facility]CODE Not Available 2023 16:40:44 Result Notes None recorded. Problems Name Problem SNOMED Code Status Onset Date Resolution Date Notes Provider Name and Address Organization Details Recorded Time Osteoarthriti s of hip 255464668 Active Not Available [facility] 3 06:46:51 Nicotine dependence 04434907 Active 2023 LILIAM Lang, [facility] 4 08:31:51 Mild chronic obstructive pulmonary disease 302251120 Active 2023 LILIAM Lang, [facility] 4 08:33:19 Lung mass 132666159 Active 2023 Tremaine Hendricks MD [address], [facility] [address], [place], [address] , [facility] 4 17:41:32 Notes:Medical History: Bilat eral tinnitus/hearing loss Rhinitis Eosinophils 270/uL IgE Nicotine use Mild COPD DELLA Hepatitis C Nodular liver Cholelithiasis Splenic granulomas Colonic diverticulosis BPH RLS Cervical DDD/stenosis Osteoarthritis Right rib fractures Right radial/ulnar/olecranon process fractures Procedure History: T&A 1963 Right first toe amputation for osteomyelitis 2014 Right BKA 2018 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 Procedures Surgical History Date Name Laterality Status Provider Name and Address Organization Details Recorded Time prosthetic limb replacement completed Not Available [facility] 11/26/2022 06:40:47 Imaging Results Imaging Date Name Status LastModified by Organiz ation Details LastModified Time 10/09/2022 PFT, complete completed [id number] Information not available 11/26/2022 06:54:46 11/05/2022 LDCT, chest, for lung cancer screening completed [id number] [facility] [address] [place], [address], 11/26/2022 06:54:46 04/01/2022 MRI, cervical spine, w/o contrast completed [id number] [facility] ([facility]) [address] [place], [address], 11/26/2022 06:54:46 03/19/2022 MRI, elbow, w/o contrast completed [id number] [facility] (Im[facility]) [address] [place], [address], 11/26/2022 06:54:46 03/06/2022 XR, elbow, 3 or more view completed [id number] Information not available 11/26/2022 06:54:46 12/04/2022 US, abdomen completed [email or web address] [facility] [address] [place], [address], 12/05/2022 08:50:41 03/07/2024 LDCT, chest, for lung cancer screening completed [facility] Information not available 03/11/2024 16:42:36 07/07/2024 PET-CT, skull base to mid-thigh scan completed [facility] Information not available 07/29/2024 16:40:44 Procedure Notes None recorded. Medical Equipment None Reported. Allergies Allergen ID Allergen Name Allergen Category Reaction Reaction Severity Criticality Documentation Date Start Date Code Code System Note Provider Name and Address Organization Details Recorded Time 01651 Bactrim medicatio n Not available Not available Not available 11/26/2022 26002 9 RxNorm Not Available [facility] 06:54:33 Medications Name Sig Start Date Stop Date Status Note LastModified by Organization Details LastModified Time cyclobenzap rine 10 mg tablet 03/13 completed Not Available Not Available Not Available ketoconazol e 2 % shampoo 10/09 completed Not Available Not Available Not Available clindamycin HCl 300 mg capsule 03/13 completed Not Available Not Available Not Available trazodone 50 mg tablet TAKE ONE-HALF TO ONE TABLETS BY MOUTH AT BEDTIME NEEDED active Not Available Not Available No t Available azithromyci n 250 mg tablet 10/28 completed Not Available Not Available Not Available ibuprofen 800 mg tablet 03/13 completed Not Available Not Available Not Available benzonatate 200 mg capsule TAKE 1 CAPSULE BY MOUTH THREE TIMES DAILY FOR 5 DAYS NEEDED FOR COUGH 08/02 completed Not Available Not Available Not Available hydrocodone 5 mg-acetamin ophen 325 mg tablet TAKE 1 TAB PO Q 4HR PRN PAIN active Not Available Not Available No t Available prednisone 20 mg tablet 10/28 completed Not Available Not Available Not Available clindamycin HCl 150 mg capsule 03/13 completed Not Available Not Available Not Available amlodipine 5 mg tablet 03/13 completed Not Available Not Available Not Available ciprofloxac in 500 mg tablet TAKE 1 TABLET BY MOUTH TWICE DAILY WITH A GLASS OF WATER 08/02 completed Not Available Not Available Not Available sulfamethox azole 800 mg-trimetho prim 160 mg tablet 03/13 completed Not Available Not Available Not Available hydrocodone 10 mg-acetamin ophen 325 mg tablet 03/13 completed Not Available Not Available Not Available tramadol 50 mg tablet TAKE 1 TABLET BY MOUTH TWICE DAILY NEEDED FOR PAIN 08/02 completed Not Available Not Available Not Available pramipexole 0.5 mg tablet TAKE 1 TABLET BY MOUTH EVERY DAY AT BEDTIME active Not Available Not Available No t Available potassium chloride ER 20 mEq tablet,exte nded release(par t/cryst) active Not Available Not Available Not Available benzonatate 100 mg capsule TAKE 1 CAPSULE BY MOUTH THREE TIMES DAILY FOR 7 DAYS DIRECTED FOR COUGH 08/02 completed Not Available Not Available Not Available hydrocodone 7.5 mg-acetamin ophen 325 mg tablet 03/13 completed Not Available Not Available Not Available econazole nitrate 1 % topical cream active Not Available Not Available Not Available cephalexin 500 mg capsule TAKE 1 CAPSULE BY MOUTH EVERY 6 HOURS FOR 5 DAYS DIRECTED 08/02 completed Not Available Not Available Not Available pramipexole 0.25 mg tablet active Not Available Not Available Not Available cephalexin 500 mg tablet Take 1 tablet every 6 hours by oral route. 10/09 completed Not Available Not Available Not Available furosemide 20 mg tablet active Not Available Not Available Not Available sodium chloride 0.9 % intravenous solution 03/13 completed Not Available Not Available Not Available vancomycin 10 gram intravenous solution 03/13 completed Not Available Not Available Not Available Cipro HC 0.2 %-1 % ear drops,suspe nsion SHAKE LIQUID AND INSTILL 3 DROPS TO AFFECTED EARS TWICE DAILY FOR 7 DAYS DIRECTED FOR EAR INFECTION 08/02 completed Not Available Not Available Not Available levofloxaci n 500 mg tablet 03/13 completed Not Available Not Available Not Available levofloxaci n 750 mg tablet TAKE 1 TABLET BY MOUTH EVERY DAY AROUND THE CLOCK FOR 5 DAYS FOR PNEUMONIA 08/02 completed Not Available Not Available Not Available methylpredn isolone 4 mg tablets in a dose pack FOLLOW PACKAGE DIRECTION S 08/02 completed Not Available Not Available Not Available albuterol sulfate HFA 90 mcg/actuati on aerosol inhaler INHALE 1 PUFF BY MOUTH EVERY 4 HOURS NEEDED active Not Available Not Available No t Available amoxicillin 875 mg-potassiu m clavulanate 125 mg tablet TAKE 1 TABLET BY MOUTH EVERY 12 HOURS FOR 7 DAYS DIRECTED FOR EAR INFECTION 08/02 completed Not Available Not Available Not Available duloxetine 30 mg capsule,del ayed release 03/13 completed Not Available Not Available Not Available Cymbalta 60 mg capsule,del ayed release 03/13 completed Not Available Not Available Not Available Chantix 0.5 mg tablet 03/13 completed Not Available Not Available Not Available Symbicort 160 mcg-4.5 mcg/actuati on HFA aerosol inhaler INHALE 2 PUFFS BY MOUTH TWICE DAILY active Not Available Not Available No t Available Chantix Continuing Month Dontae 1 mg tablet 03/13 completed Not Available Not Available Not Available dexlansopra zole 30 mg capsule,bip hase delayed release TAKE 1 CAPSULE BY MOUTH DAILY active Not Available Not Available No t Available PEG-3350 with flavor packs 420 gram oral solution active Not Available Not Available Not Available Chantix Starting Month Box 0.5 mg (11)-1 mg (42) tablets in dose pack 03/13 completed Not Available Not Available Not Available Spiriva Respimat 2.5 mcg/actuati on solution for inhalation INHALE 2 PUFFS BY MOUTH EVERY DAY active Not Available Not Available No t Available Vitals Date Recorded Body mass index (BMI) Body mass index (BMI) Heart rate Heart rate Body height Body height Oxygen saturation Oxygen saturation in Arterial blood by Pulse oximetry Oxygen saturation Oxygen saturation in Arterial blood by Pulse oximetry Heart rate Heart rate Respiratory rate Respiratory rate Body temperature Body temperature Body weight Body weight Systolic blood pressure Diastolic blood pressure Systolic blood pressure Diastolic blood pressure Provider Name and Address Organization Details Last Updated DateTime 3 24.9 kg/m2 23.6 kg/m2 82 /min 70 /min 172.72 cm 172.72 cm 98 % 98 % 99 % 99 % 82 /min 70 /min 15 /min 14 /min 98.5 [degF] 97.6 [degF] 41064.7 1 g 78097.8 2 g 130 mm[Hg] 80 mm[Hg] 120 mm[Hg] 60 mm[Hg] Not Available [facility] 3 06:45:29 Date Recorded Body height Body temperature Systolic blood pressure Diastolic blood pressure Provider Name and Address Organization Details Last Updated DateTime 08/02/2024 172.72 cm 97.6 [degF] 114 mm[Hg] 72 mm[Hg] Vandana Aj MA [facility] 4 17:12:50 Date Recorded Heart rate Oxygen saturation Oxygen saturation in Arterial blood by Pulse oximetry Heart rate Respiratory rate Body mass index (BMI) Body weight Provider Name and Address Organization Details Last Updated DateTime 4 71 /min 96 % 96 % 71 /min 15 /min 22.5 kg/m2 67565.6 7 g Tremaine Hendricks MD [address] [facility], [facility] [address], [place], [address], [facility] 4 17:29:59 Social History Question Answer Notes LastModified by Organization Details LastModified Time Tobacco Smoking Status Current Every Day Smoker cigars, using patch to try to quit Not Available [facility] 11/26/2022 06:40:34 What Is Your Level Of Alcohol Consumption? Occasional MIGRATION.0301 [id number] Information not available 11/26/2022 What Is Your Level Of Caffeine Consumption? None MIGRATION.0301 [id number] Information not available 11/26/2022 In The 14 Days Before Symptom Onset, Have You Had Close Contact With A Laboratory-confi rmed COVID-19 While That Case Was Ill? No MIGRATION.0301 [id number] Information not available 11/26/2022 In The 14 Days Before Symptom Onset, Have You Had Close Contact With A Person Who Is Under Investigation For COVID-19 While That Person Was Ill? No MIGRATION.0301 [id number] Information not available 11/26/2022 What Type Of Diet Are You Following? REGULAR MIGRATION.0301 [id number] Information not available 11/26/2022 Do You Have An Electrostatic Air Filter? No MIGRATION.0301 [id number] Information not available 11/26/2022 What Is Your Occupation? Disability MIGRATION.0301 [id number] Information not available 11/26/2022 Have You Been Exposed To Chemicals Or Toxins? No Not That Aware Of Information not available 08/02/2024 Do You Have A Humidifier? Yes MIGRATION.0301 [id number] Information not available 11/26/2022 Where Do You Live? [place] MIGRATION.0301 [id number] Information not available 11/26/2022 Do You Have Moisture Problems In Your Home? No MIGRATION.0301 [id number] Information not available 11/26/2022 What Was The Date Of Your Most Recent Tobacco Screening? 08/02/2024 Information not available 08/02/2024 Do You Have Any Pets? No [id number] Information not available 11/26/2022 Do You Use Your Seat Belt Or Car Seat Routinely? Yes Information not available 08/02/2024 Do You Have Smoke And Carbon Monoxide Detectors In Your Home? Yes [id number] Information not available 11/26/2022 Are You Passively Exposed To Smoke? Yes [id number] Information not available 11/26/2022 Do You Feel Stressed (tense, Restless, Nervous, Or Anxious, Or Unable To Sleep At Night)? [id number] Information not available 08/02/2024 Do You Use Any Illicit Or Recreational Drugs? No [id number] Information not available 11/26/2022 Do You Use Sunscreen Routinely? No MIGRATION.030 [id number] Information not available 11/26/2022 Have You Recently Traveled Abroad? No MIGRATION.030 [id number] Information not available 11/26/2022 Do You Have Any Dietary Restrictions? No [id number] Information not available 11/26/2022 Sex: Unknown Functional Status Question Answer Note LastModified by [employer] ion Details LastModified Time What is your exercise level? None [id number] Information not available 11/26/2022 Mental Status None recorded. Family History Nothing Reported. Medical History Condition Response BLINDNESS N KIDNEY STONES N MRSA N CARPAL TUNNEL SYNDROME N LUNG DISEASE/DISORDER N HISTORY OF DRUG ABUSE N RADIATION / CHEMOTHERAPY N COPD N SPORTS INJURY N ANKLE PAIN N BLOOD DISEASES N SCHIZOPHRENIA N SHINGLES N SHOULDER PAIN N DEPRESSION (INCLUDING POST ) N BOWEL PROBLEMS N STROKE/TIA N ULCERS N KNEE PAIN N BENIGN PROSTATIC HYPERPLASIA N OBESITY N GERD/NAUSEA N ANEURYSM N URINARY/BLADDER/KIDNEY PROBLEMS N CORONARY ARTERY DISEASE (CAD) N ADDICTION CONCERNS N USE OF BLOOD THINNERS N SKIN PROBLEMS N EMPHYSEMA N MUSCLE,JOINT OR BONE PROBLEMS N DVT N STOMACH ULCERS N BLOOD CLOTS N USE OF NSAIDS N CONCUSSION OR SPINAL TRAUMA N NEUROPATHY N AIDS/HIV N FRACTURES N HYPERTENSION N ELBOW PAIN N TOURETTE'S N Metal allergy N ANXIETY DISORDER N BLOOD TRANSFUSION N ANEMIA/BLOOD DISORDER N BIPOLAR DISORDER N BRONCHITIS N OSTEOARTHRITIS N TUBERCULOSIS N FOOT PROBLEM N HEART VALVE DISORDERS N ALLERGIES/HAYFEVER N SOFT TISSUE INJURY N INFECTIOUS DISEASE N HEART ARRHYTHMIA N INSOMNIA N HIGH CHOLESTEROL / HYPERLIPIDEMIA N RHEUMATOID ARTHRITIS N EDEMA N CHRONIC PAIN SYNDROME N CAROTID BLOCKAGE N BACK / NECK PROBLEMS N HAVE YOU BEEN HOSPITALIZED OR SEEN IN TH E ER IN THE PAST YEAR ? N BURSITIS N HERNIATED DISC N DIALYSIS N FIBROMYALGIA N OSTEOPOROSIS N ARTHRITIS N NO SIGNIFICANT PAST MEDICAL HISTORY N PERIPHERAL NEUROPATHY N DIABETES, TYPE N HEARTBURN / REFLUX N HEPATITIS / LIVER DISEASE N GOUT N ALZHEIMER'S DISEASE N SLEEP DISORDER N HERPES N HEADACHES/MIGRAINES N SEIZURES/EPILEPSY N VASCULAR DISEASE N Blood Disorder N HIP PAIN N DIZZINESS N HEAD TRAUMA OR INJURY N HEART DISEASE/HEART PROBLEMS N MULTIPLE SCLEROSIS N CANCER: SPECIFY N CARDIAC ARRHYTHMIA N ANESTHESIA COMPLICATIONS N ATRIAL FIBRILLATION N AUTOIMMUNE DISEASE N Past Encounters Encounter ID Performer Location Encounter Start Date Encounter Closed Date Diagnosis/Indication Diagnosis SNOMED-CT Code Diagnosis ICD10 Code Diagnosis Note [id number] [facility] [address] [address] 03/13/2022 00:00:00 03/31/2022 16:48:57 [id number] [facility] [address] [address] 03/27/2022 00:00:00 03/31/2022 16:39:04 [id number] [facility] [address] [address] 10/28/2022 00:00:00 10/28/2022 11:19:38 [id number] [facility] [address] [address] 11/12/2022 00:00:00 11/12/2022 15:25:22 [id number] Tremaine Hendricks MD [facility] [address] [address] 08/02/2024 16:56:59 09/20/2024 15:05:47 Lung mass [id number] R91.8 J18.9 Mild chron ic obstructive pulmonary disease 187621607 J44.9 Health Concerns Section Related Observation LastModified by Organization Detai ls LastModified Time None Recorded Concern Status LastModified by Organization Details LastModified Time None Recorded Advance Directives Directive None Recorded Payers Encounter Date Sequence Insurance Name Policy Number Policy Garza Covered Member ID Garza Member ID Guarantor Name 08/02/2024 1 [facility] (MEDICARE REPLACEMENT/AD VANTAGE - PPO) [id number] Lynda Lund [id number] Néstor Mai Ashely Rios 08/02/2024 2 [employer] [place] - DOS ON OR AFTER 2020 (MEDICAID REPLACEMENT - HMO) Lynda Lund [id number] Néstor Mai Ashely Rios Notes Date Note Type Note Provider Name and Address Organization Details Recorded Time 08/02/2024 text/html Primary care/Ref erring provider: Lisa Escalante MD Patient was lost to follow up since 11/12/22. He was sent back after completing a 5 day course (07/24/24 - 07/28/24) of levofloxacin at 750 mg per day from his PCP for pneumonia. He did not have fever and had no worsening of his baseline respiratory symptoms before he started on the antibiotics.Patient is here to go over his COPD management.Initial development of shortness of breath: 2012Duration of shortness of breath: 12 yearsCondition of shortness of breath: stableTiming of shortness of breath: afternoonFrequency: up to 5 times a dayLimits activities: yesAggravating factors: walking, lifting laundryAlleviating factors: restModified [employer] [place] (mMRC) Dyspnea Scale - Grade 2Grade 0 I only get breathless with strenuous exercise .Grade 1 I get short of breath when hurrying on the level or walking up a slight hill .Grade 2 I walk slower than people of the same age on the level because of breathlessness or have to stop for breath when walking at my own pace on the level .Grade 3 I stop for breath after walking about 100 yards or after a few minutes on the level .Grade 4 I am too breathless to leave the house or I am breathless when dressing .Treatment history:Albuterol HFA as needed since 2011Spiriva Respimat 2.5 mcg 2 puffs daily since 2022Symbicort HFA 160/4.5 mcg 2 puffs BID since 2022Other symptoms:Drooling: noDysarthria: noNeck pain: noOdynophagia: noDysphagia: noWeak mastication: noFacial weakness: noNasal speech: noProtruding tongue: noProductive cough: clear to whiteWheezing: noChest tightness: yesOrthopnea: noFrequent throat clearing or swallowing: noPalpitations: noHeartburn: noEdema: yesEnvironmental exposures:Nicotine smoke: 1/2 ppd [id number] = 21.5 pack years, 2 cigars/day 2018-presentPaint: noDye: noDust mites: yesMold: noDamp basement: noWood burning stove: noAnimal dander: noCockroaches: yesPollen: yesArsenic: noAsbestos: noBeryllium: noCadmium: noChromium: noCoal smoke: noDiesel fumes: noNickel: noSilica: noSoot: noEPWORTH SLEEPINESS SCALE (ESS)CHANCE OF DOZING SCORE0 = would never doze1 = slight chance of dozing2 = moderate chance of dozing3 = high chance of dozingSITUATION AND CHANCE OF DOZINGSitting and reading - 1Watching television - 1Sitting inactive in a public place (e.g. a theater or meeting) - 1As a passenger in a car for an hour without a break - 1Lying down to rest in the afternoon when circumstances permit - 3Sitting and talking to someone - 1Sitting quietly after lunch without alcohol - 3In a car, while stopped for a few minutes in the traffic - 1TOTAL SCORE 12Subjectively, patient has a moderate chance of dozing. Tremaine Hendricks MD [address] [place] [address], [place] [address], [place], [address], [place] - [facility] 08/02/2024 17:54:19
--- OUTSIDE RECORDS SUMMARY | 2024-11-08 11:49 | XMS_ITS | Referral Summary ---
Author Organization [facility] Address [address] [place] [address] Care Team Providers Care Supervisor [employer] Name Role Phone Lisa Gamboa MD Primary Care Provider iLsa Gamboa MD Unavailable [phone] Allergies Active Allergy Reactions Criticality Noted Date Comments Sulfamethoxazole-Trimethoprim Swelling Medium 2015 Medications dexlansoprazole (DEXILANT) 30 mg capsule Take 1 capsule (30 mg total) by mouth daily 08/08/2016 Active traZODone (DESYREL) 50 mg tablet Take 1 tablet (50 mg total) by mouth daily 08/08/2016 Active albuterol HFA (PROVENTIL HFA,VENTOLIN HFA,PROAIR HFA) 90 mcg/actuation inhaler INHALE 2 PUFFS BY MOUTH EVERY 4 HOURS NEEDED FOR COPD 02/25/2024 Active amLODIPine (NORVASC) 5 mg tablet Take 1 tablet (5 mg total) by mouth daily 08/08/2016 Active pramipexole (MIRAPEX) 0.5 mg tablet Take 1 tablet (0.5 mg total) by mouth nightly at bedtime 01/29/2024 Active tiotropium bromide (SPIRIVA RESPIMAT) 2.5 mcg/actuation inhaler Inhale Active budesonide-form oteroL (SYMBICORT) 80-4.5 mcg/actuation inhaler Inhale 2 puffs 2 (two) times a day Rinse mouth with water after use. Do not swallow. Active Active Problems Problem Noted Date Diagnosed Date 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 (CMS/HCC ) 04/11/2024 Cellulitis and abscess of hand 04/11/2024 S/P AKA (above knee amputation), right Right-sided chest wall pain 04/13/2021 Essential hypertension 04/13/2021 Elevated troponin 04/13/2021 Elevated lactic acid level 04/13/2021 Depression with anxiety 04/13/2021 COPD (chronic obstructive pulmonary disease) Cigarette smoker 04/13/2021 Protein-calorie malnutrition, moderate (CMS/HCC) 12/07/2020 Polyneuropathy 12/07/2020 Alcohol abuse 12/07/2020 Abscess of left thumb 12/07/2020 Viral upper respiratory tract infection 12/18/19 Iron deficiency anemia 12/17/2018 Hyponatremia 12/17/2018 Cerumen impaction 12/17/2018 Cellulitis of left foot 12/17/2018 PAD (peripheral artery disease) 10/06/2018 Monoparesis of upper extremity (CMS/HCC) 017 Herniated lumbar intervertebral disc 11/20/2016 Microcytic hypochromic anemia 04/22/2016 Normocytic normochromic anemia 09/12/2014 Social History Tobacco Use Types Packs/Day Years Used Date Smoking Tobacco: Every Day Cigars Started: 1976 Tobacco Cessation:Ready to Q uit: Not Asked; Counseling Given: Not Answered Personal Safety Answer Date Recorded Getting School Help Needed Not on file 12/12 Sex and Gender Information Value Date Recorded Sex Assigned at Not on file Legal Sex Male 3:15 AM 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 LABORATORY ASSISTANT Gender Identity Not on file Sexual Orientation Not on file Last Filed Vital Signs Vital Sign Reading Time Taken Comments Blood Pressure 150/88 11/20/2016 7:30 AM CHEMICAL LABORATORY ASSISTANT Pulse 64 11/20/2016 7:30 AM CHEMICAL LABORATORY ASSISTANT Temperature - - Respiratory Rate - - Oxygen Saturation - - Inhaled Oxygen Concentration - - Weight 60.8 kg (134 lb) 04/11/2024 12:03 PM CDT Height 172.7 cm (5' 8 ) 04/11/2024 12:03 PM CDT Body Mass Index 20.37 04/11/2024 12:03 PM CDT Plan of Treatment Not on file Insurance MEDICARE SOLUTIONS MEDICARE [facility] MEDICARE SOLUTIONS MEDICARE SOLUTIONS IDPA Care Teams Supervisor [employer] Relationship Specialty Start Date End Date Lisa Gamboa MD [address] [facility] [address] [place] [address] PCP - General Internal Medicine 01/22/24 Lisa Gamboa MD [address] [facility] [address] [place] [address] Internal Medicine 01/22/24
--- OUTSIDE RECORDS SUMMARY | 2024-11-08 11:49 | XMS_ITS | Clinical Summary ---
Author Organization [facility] Address [address] [place] [address] Care Team Providers Care Physical Therapy Professor Name Role Phone Lisa Gamboa MD Primary Care Provider Lisa Gamboa MD Unavailable [phone] Allergies Active Allergy Reactions Criticality Noted Date [...] hypochromic anemia 04/22/2016 Normocytic normochromic anemia 09/12/2014 Surgical History Surgery Date Site/Laterality Comments BELOW KNEE LEG AMPUTATION 06/15/2017 Right TONSILLECTOMY TOE AMPUTATION Right 2nd, 3rd CATARACT EXTRACTION Bilateral Medical History Medical History Date Comments COPD (chronic obstructive pulmonary disease) (HC C) Bronchitis Restless leg Chronic kidney disease Peripheral vascular disease (HCC) Peripheral neuropathy Hypertension Hepatitis C GERD (gastroesophageal reflux disease) Depression Anemia MRSA colonization Acute osteomyelitis (CMS/HCC) (HCC) Social History Tobacco Use Types Packs/Day Years Used Date Smoking Tobacco: Every Day Cigars Started: 1976 Tobacco Cessation:Ready to Q uit: Not Asked; Counseling Given: Not Answered Personal Safety Answer Date Recorded Getting School Help Needed Not on file 12/12 Sex and Gender Information Value Date Recorded Sex Assigned at Not on file Legal Sex Male 3:15 AM ENERGY TRADING ANALYST Gender Identity Not on file Sexual Orientation Not on file Obstetrics History Last Filed Vital Signs Vital Sign Reading Time Taken Comments Blood Pressure 150/88 11/20/2016 7:30 AM ENERGY TRADING ANALYST Pulse 64 11/20/2016 7:30 AM ENERGY TRADING ANALYST Temperature - - Respiratory Rate - - Oxygen Saturation - - Inhaled Oxygen Concentration - - Weight 60.8 kg (134 lb) 04/11/2024 12:03 PM CDT Height 172.7 cm (5' 8 ) 04/11/2024 12:03 PM CDT Body Mass Index 20.37 04/11/2024 12:03 PM CDT Plan of Treatment Health Maintenance Due Date Last Done Comments Colon Cancer Screening-Colonoscopy 1958 Depression Screening 1958 Fall Risk Assessment 1958 Prostate Cancer Screening-PSA 1960 Pneumococcal vaccine 65+ (1 of 2 - PCV) 1964 Hepatitis B Screening 1976 Zoster Vaccine (2 of 3) 10/03/2016 08/08/20 16, 06/13/2016, 05/23/2016 DTaP/Tdap/Td Vaccine (2 - Td or Tdap) 06/05/2022 06/05/2012 Abdominal Aortic Aneurysm (A AA) Screen 2023 Well Visit 65+ 2023 Influenza Vaccine (#1) 2024 6, 06/13/2016, 05/23/2016, Additional history exists Hepatitis C Screening Completed 07/18/2016, 015 Insurance MEDICARE [facility] MEDICARE Address: [facility] [address] [place] [address] MEDICARE IDPA MEDICARE SOLUTIONS MEDICARE [employer] IDPA Care Teams Physical Therapy Professor Relationship Specialty Start Date End Date Lisa Gamboa MD [address] [place] [address] PCP - General Internal Medicine 01/22/24 Lisa Gamboa MD [address] [place] [address] Internal Medicine 01/22/24
--- OUTSIDE RECORDS SUMMARY | 2024-11-08 11:49 | XMS_ITS | Continuity of Care Document ---
Author Organization [facility] Address [address] [place] [address] Phone Care Team Providers Care Building Cleaning Supervisor Name Role Phone Vicenta Mcmahan Unavailable Unavailable Advance Directives Directive Yes / No Effective Date File Name No Information Encounters Encounter Description Practice Location Reason(s) For Visit Diagnoses Date Provider Providers Copied on Encounter [facility], [address], [place], [place], [id number], [place] tel:[phone] [facility] No Information [address] [facility] , [address], [place], [address], [place]. tel:[phone] Family History Family Member Type Diagnosis Age At Onset No Information Payers Payer name Insurance type Covered alliance party ID Authoriza tion(s) [facility] [id number] Social History Type Description Quantity Date Captured Comments Sex Male Smoking Status No Information Chief Complaint And Reason For Visit No Information Reason For Referral Reason For Referral No Information History Of Present Illness Encounter Date Complaint History Of Prese nt Illness No Information Functional Status Date Functional Assessmen t No Information Instructions Date Instruction Additional Infor mation No Information Assessments Type Assessment Date No Information Patient Care Teams Name Effective Dates (start - stop) Status Members No Information
== END 2024-11-08 10:29 | disposition home or self-care (01) ==
PROVIDERS: PCP Internal Medicine Infectious Disease; Visit Provider Internal Medicine Pulmonary Disease
DX: R91.8 Other nonspecific abnormal finding of lung field (principal); K80.20 Calculus of gallbladder without cholecystitis without obstruction
CPT/HCPCS: 71250